=== PATIENT | female | born 1970 | race Caucasian/White ===

== ENCOUNTER → 2021-02-22 | Outpatient (CLI) | payer BC ==
[2021-02-22 13:49] VITALS: BP 158/98; PULSE 84; RESP 18; TEMP 98.4
--- NOTE | 2021-02-22 14:46 | P.GSHP ---
History of Present Illness H&P Date: 02/22/21 Chief Complaint: left breast invasive ductal cancer Jane is a 50-year-old white female status post routine mammogram on [id number]. This revealed an area of pleomorphic calcifications in the left breast in the lower outer quadrant at 5:00 for which stereotactic core biopsy was recommended. No lesions of concern were identified in the right breast. She underwent a stereotactic core biopsy of the left breast and which revealed invasive ductal carcinoma ER/VA and HER-2 status are pending. The patient had not felt any lumps masses or not his of concern in either breast prior to the mammogram. She is not complaining of any abnormal nipple discharge. She gets regular mammograms every year. She has not had any recent trauma or infection in the breast. Caffeine: 3 cups/day nicotine: none chocolate: several times/week hormones: none BCP: 10 years, stopped 27 years ago Family history: Mother: Breast cancer mid 60s Paternal grandmother: Breast cancer Paternal aunt: Breast cancer Hormonal history: menarche: 9 , breast fed: none; first at 24 menopause: partial hysterectomy at 39 left ovaries; done for cyst no cancer BCP: 10 years stopped 27 years ago Surgical history: partial hysterectomy; left ovaries; bladder suspension foot surgery tubal Medical history: Negative Social history: Alcohol: Negative Nicotine: Negative Drugs: Negative - Constitutional Constitutional: Denies chills, Denies fever - EENT Eyes: denies blurred vision, denies pain Ears, nose, mouth and throat: Denies headache, Denies sore throat - Breasts Breasts: bilateral: as per HPI - Cardiovascular Cardiovascular: Denies chest pain, Denies shortness of breath - Respiratory Respiratory: Denies cough, Denies 7 - Gastrointestinal Gastrointestinal: Denies abdominal pain, Denies diarrhea, Denies nausea, Denies vomiting - Genitourinary (Female) Genitourinary: Denies dysuria, Denies hematuria - Menstruation Menstruation: Reports post hysterectomy - Musculoskeletal Musculoskeletal: Reports myalgias - Integumentary Integumentary: Denies pruritus, Denies rash - Neurological Neurological: Denies numbness, Denies weakness - Psychiatric Psychiatric: Denies anxiety, Denies depression - Endocrine Endocrine: Reports weight change, Denies fatigue - Hematologic/Lymphatic Comment: none - Allergic/Immunologic Allergic/Immunologic: Reports as per HPI Past Medical History Past Medical History: No Reported History History of Any Multi-Drug Resistant Organisms: None Reported Past Surgical History: Bladder Surgery, Hysterectomy, Tubal Ligation Additional Past Surgical History / Comment(s): left breast biopsy 2020, right foot surgery x2 Past Anesthesia/Blood Transfusion Reactions: No Reported Reaction Past Psychological History: No Psychological Hx Reported Smoking Status: Former smoker Past Alcohol Use History: None Reported Past Drug Use History: None Reported - Past Family History Mother Family Medical History: Cancer Additional Family Medical History / Comment(s): breast cancer, also in paternal mom and aunt Medications and Allergies Home Medications Medication Instructions Recorded Confirmed Type No Known Home Medications 02/22/21 02/22/21 History Allergies Allergy/AdvReac Type Severity Reaction Status Date / Time levofloxacin [From Levaquin] Allergy Rash/Hives Verified 02/22/21 13:49 Surgical - Exam Vital Signs Temp Pulse Resp BP Pulse Ox 98.4 F 84 18 158/98 96 02/22/21 13:37 02/22/21 13:37 02/22/21 13:37 02/22/21 13:37 02/22/21 13:37 BMI 38.3 - General no distress - Eyes normal ocular movement - ENT no hearing loss, no congestion - Neck trachea midline - Respiratory normal respiratory effort, clear to auscultation - Cardiovascular Rhythm: regular Heart Sounds: normal: S1, S2 - Abdomen Abdomen: soft - Integumentary normal turgor - Musculoskeletal normal gait - Psychiatric oriented to time, oriented to person, oriented to place, speech is normal, memory intact Breast Exam: BRA: 42B inspection grade 2 ptosis bilateral palpation: right breast: Positional exam fibrocystic changes no dominant masses or nodules of concern Right axilla: No adenopathy of concern Left breast: Multi-positional exam fibrocystic changes, particularly attention to the 5 o'clock position reveals what is most likely the biopsy site but no discrete dominant masses or nodules of concern Left axilla: No adenopathy of concern Results Mammogram report reviewed films are not available at this time Pathology report reviewed ER/VA and HER-2 status are not available at this time Assessment and Plan Assessment: Impression: 1. Invasive ductal left breast carcinoma 5 o'clock position awaiting radiographic studies as well as ER/VA and HER-2/izzy studies 2. Family history of cancer 3. Fibrocystic breast changes Plan: 1. Presentation of case at tumor board 2. Obtain radiographic and pathologic studies 3. schedule operative procedure for the first part of March 4. Patient is going to follow up here after cases been presented at tumor board 5. genetic testing CC: Dr. Elizabeth
== END ==
LOC: WWCWWP 13:22
PROVIDERS: ATTEND Surgery
DX: C50.512 Malignant neoplasm of lower-outer quadrant of left female breast (principal); N60.11 Diffuse cystic mastopathy of right breast; N60.12 Diffuse cystic mastopathy of left breast; Z80.3 Family history of malignant neoplasm of breast; Z87.891 Personal history of nicotine dependence; Z88.1 Allergy status to other antibiotic agents

== ENCOUNTER → 2021-03-09 | Outpatient (CLI) | payer BC ==
[2021-03-09 08:46] VITALS: BP 160/81; PULSE 65; RESP 18; TEMP 98.4
--- NOTE | 2021-03-09 09:34 | P.PN ---
Progress Note - Text Progress Note Date: 03/09/21 Jane Martinez is a 51-year-old white female whose case was presented at tumor board on [id number]. She was noted to have a T1or2 [id number]- stage IA or 1B invasive ductal carcinoma. The pathology revealed invasive as well as in situ carcinoma. Secondary to the question of the size of the tumor it was recommended that an MRI be performed. If it appears that the invasive component is greater than 2 cm neoadjuvant chemotherapy is recommended. If the lesion is less than 2 cm then surgery would be performed initially. The patient has been recommended to undergo an MRI as well as genetic testing. She presents today for discussion of her treatment plan. The patient was recommended and discussed with her that she should undergo an MRI of the breast as well as genetic testing. Both of these have been scheduled. Additionally have recommended that she be seen by medical oncology and this is being scheduled. The surgical options for the patient were also discussed. Options for the breast include mastectomy plus or minus reconstruction versus lumpectomy with radiation. The risks include but are not limited to bleeding, infection, reaction to the anesthetic. Additionally the possibility of a positive margin requiring reexcision was discussed. I've also discussed with the patient treatment of the axilla. This would include a sentinel node biopsy with possible injection of methylene blue and radioactive tracer did not travel to the lymph node. Additionally the p ossibility of an axillary node dissection. This can benefits of these procedures were discussed with the patient. Risks include but are not limited to bleeding, infection, reaction to the anesthetic, lymphedema, decreased sensation to the inner arm, and possible injury to the thoracodorsal and long thoracic nerves. I spent approximately 45 minutes with the patient discussing her tumor and the t reatment options. The patient will make her final decision after results of the MRI and genetic testing are available. 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 Chu Elizabeth
== END ==
LOC: WWCWWP 08:34
PROVIDERS: ATTEND Surgery
DX: D05.12 Intraductal carcinoma in situ of left breast (principal); Z88.1 Allergy status to other antibiotic agents

== ENCOUNTER → 2021-04-12 | Outpatient (CLI) | payer BC ==
--- NOTE | 2021-04-13 10:42 | ECHOF ---
Referral Reason:Z01.818 encounter for pre procedural exam MEASUREMENTS -------- HEIGHT: 165.1 cm WEIGHT: 104.3 kg BP: RVIDd: 3.4 cm (< 3.3) IVSd: 1.6 cm (0.6 - 1.1) LVIDd: 4.1 cm (3.9 - 5.3) LVPWd: 1.4 cm (0.6 - 1.1) IVSs: 1.9 cm LVIDs: 2.7 cm LVPWs: 1.7 cm LAESV Index (A-L): 23.38 ml/m Ao Diam: 3.0 cm (2.0 - 3.7) AV Cusp: 2.2 cm (1.5 - 2.6) LA Diam: 4.4 cm (2.7 - 3.8) MV EXCURSION: 16.312 mm (> 18.000) MV EF SLOPE: 64 mm/s (70 - 150) EPSS: 0.4 cm MV E Finesse: 0.54 m/s MV DecT: 220 ms MV A Finesse: 0.59 m/s MV E/A Ratio: 0.92 RAP: 5.00 mmHg RVSP: 29.39 mmHg FINDINGS -------- Sinus rhythm. This was a technically difficult study with suboptimal apical views. The left ventricular size is normal. There is moderate concentric left ventricular hypertrophy. O verall left ventricular systolic function is normal with, an EF between 55 - 60 %. The diastolic fi lling pattern is normal for the age of the patient {E/E'}. The right ventricle is mildly enlarged. Normal LA size by volume 22+/-6 ml/m2. The right atrial size is normal. 3.0mg of Lumason was utilized for enhancement of images Interatrial and interventricular septum intact. The aortic valve is trileaflet and appears structurally normal. There is no evidence of aortic regu rgitation. There is no evidence of aortic stenosis. No mitral regurgitation. Mild tricuspid regurgitation present. There is no evidence of pulmonary hypertension. The right v entricular systolic pressure, as measured by Doppler, is 29.39mmHg. There is no pulmonic regurgitation present. The aortic root size is normal. IVC Not well visulized. There is no pericardial effusion. CONCLUSIONS -------- 1. The left ventricular size is normal. 2. There is moderate concentric left ventricular hypertrophy. 3. Overall left ventricular systolic function is normal with, an EF between 55 - 60 %. 4. The right ventricle is mildly enlarged. 5. Mild tricuspid regurgitation present. MANUAL TRAINING TEACHER: Rozina Wade RDCS
== END | disposition home or self-care (01) ==
LOC: RADECHMAIN 13:54
PROVIDERS: ATTEND Internal Medicine Hematology & Oncology
DX: Z01.818 Encounter for other preprocedural examination (principal); I07.1 Rheumatic tricuspid insufficiency
CPT/HCPCS: 93306

== ENCOUNTER → 2021-04-23 | Outpatient (CLI) | payer BC | END | disposition home or self-care (01) | LOC: LABPAT 07:11 | PROVIDERS: ATTEND Surgery Plastic and Reconstructive Surgery | DX: Z01.812 Encounter for preprocedural laboratory examination (principal); Z20.822 Contact with and (suspected) exposure to COVID-19 | CPT/HCPCS: U0003; C9803 ==

== ENCOUNTER → 2021-04-26 | Day surgery (SDC) | payer BC ==
[2021-04-23 11:27] VITALS: BMI 38.2
[~2021-04-26] MED LIST: ACETAMINOPHEN TAB 500 MG TAB PO PRN; BUPIVACAIN-EPI 0.25%-1:200,000 30 ML VIAL SQ ONE; HEPARIN SODIUM,PORCINE 10,000 UNIT/ML 1 ML VIAL IV ONE; HEPARIN SODIUM,PORCINE 100 UNIT/ML 5 ML VIAL IV ONE; LACTATED RINGERS 1,000 ML IV ONE; LACTATED RINGERS 1,000 ML IV SCH; LIDOCAINE 1% INJ 10MG/ML (20 ML MDV) ONE; MIDAZOLAM 2 MG/2 ML VIAL ONE; ONDANSETRON 4 MG/2 ML VIAL IVP ONE; PROPOFOL 10 MG/ML 20 ML VIAL IV ONE; Pre Op ABX Message 1 EACH MISC MISCELLANE ONE; SODIUM CHLORIDE 0.9% 500 ML 500 ML with HEPARIN SODIUM,PORCINE 5,000 UNIT IV ONE; fentaNYL (PF) 50 MCG/ML 2 ML AMP IV PRN; fentaNYL (PF) 50 MCG/ML 2 ML AMP ONE
--- NOTE | 2021-04-26 06:20 | P.GSHP ---
History of Present Illness H&P Date: 04/26/21 CHIEF COMPLAINT: Breast cancer HISTORY OF PRESENT ILLNESS: The patient is a 51-year-old female diagnosed with breast cancer. She needs a Mediport placement for chemotherapy. PAST MEDICAL HISTORY: See list and reviewed PAST SURGICAL HISTORY: See list and reviewed CURRENT MEDICATIONS: See list and reviewed ALLERGIES: See list and reviewed SOCIAL HISTORY: See list and reviewed FAMILY HISTORY: See list and reviewed REVIEW OF ORGAN SYSTEMS: CONSTITUTIONAL: Has weight loss. PHYSICAL EXAMINATION: Vital signs: Stable GENERAL: Well developed and in no acute distress. Pleasant. HEENT: No sclera icterus. Extraocular movements grossly intact. Moist buccal mucosa. Head is atraumatic, normocephalic. Hears conversational speech. No nasal drainage. NECK: Supple without lymphadenopathy. No JV distention. CHEST: Non-labored respirations and equal bilateral excursions. CARDIOVASCULAR: Regular rate and rhythm. Palpable 2+ radial pulses. ABDOMEN: Nontender. MUSCULOSKELETAL: No clubbing, cyanosis or edema. NEUROLOGIC: No focal or lateralizing signs. PSYCH: Appropriate affect. Alert and oriented to person, place and time. ASSESSMENT: 1. Breast cancer 2. Need for chemotherapeutic access. PLAN: 1. Agree with Port-A-Cath placement. Past Medical History Past Medical History: Cancer Additional Past Medical History / Comment(s): newly diagnosed left breast cancer History of Any Multi-Drug Resistant Organisms: None Reported Past Surgical History: Bladder Surgery, Breast Surgery, Hysterectomy, Orthopedic Surgery, Tubal Ligation Additional Past Surgical History / Comment(s): left breast biopsy, right foot surgery x2 Past Anesthesia/Blood Transfusion Reactions: No Reported Reaction Past Psychological History: No Psychological Hx Reported Smoking Status: Former smoker Past Alcohol Use History: None Reported Past Drug Use History: None Reported - Past Family History Mother Family Medical History: Cancer Additional Family Medical History / Comment(s): breast cancer, also in paternal grandma and aunt Medications and Allergies Home Medications Medication Instructions Recorded Confirmed Type No Known Home Medications 02/22/21 04/23/21 History Allergies Allergy/AdvReac Type Severity Reaction Status Date / Time levofloxacin [From Levaquin] Allergy Rash/Hives Verified 04/23/21 11:18
[2021-04-26 09:05] LABS: INR 0.9 (<1.2); Partial Thromboplastin Time 23.3 sec (22.0-30.0); Prothrombin Time 10.3 sec (9.0-12.0)
[2021-04-26 09:10] LABS: Glucose,Whole Blood 114 mg/dL (75-99)
--- NOTE | 2021-04-26 11:04 | P.OP ---
Date of Procedure: 04/26/21 Description of Procedure: SURGEON: CATHY BILLINGSLEY MD CLINICAL MEDICAL TRANSCRIPTIONIST: None. PREOPERATIVE DIAGNOSES: 1. Breast cancer, right 2. Need for chemotherapeutic access. 3. Morbid obesity due to excess calories, BMI 39.2 POSTOPERATIVE DIAGNOSES: 1. Breast cancer, right 2. Need for chemotherapeutic access. 3. Morbid obesity due to excess calories, BMI 39.2 PROCEDURES PERFORMED: 1. Ultrasound guided central venous access of the right internal jugular venous vein. 2. Fluoroscopic guidance for central venous access right internal jugular vein, 1 second. 3. Placement of right internal jugular power port 6 [place] by [employer] System, Xcela Plus Port ANESTHESIA: IV sedation with local. ESTIMATED BLOOD LOSS: 5 mL. SPECIMENS REMOVED: None. COMPLICATIONS: None. FINDINGS: 1. No thrombus encountered along the right carotid artery or internal jugular vein. 2. Access of the right internal jugular vein under ultrasound guidance. 3. Fluoroscopy 1 second. INDICATIONS: The patient is a 51-year-old female recently diagnosed with breast cancer. She presents for chemotherapeutic access. Benefits and risks of surgical intervention were described including bleeding, infection, mechanical problems with his port. Informed consent was obtained. DESCRIPTION OR PROCEDURE: Patient was brought into the operating room, laid in supine position. After adequate IV sedation, the chest and right neck were prepped and draped in a standard sterile fashion including the shoulder with ChloraPrep. Timeout protocol was confirmed with the surgical team regarding the patient's name, procedure to be performed including preoperative medications for which she received IV antibiotics. Bilateral SCDs were placed. An ultrasound was used to capture views of the right internal jugular vein including right carotid artery, which was patent and without thrombus along its course. The right IJ was then localized using anesthetic for the skin. A 16 [place] needle was used to access the IJ. A guidewire was advanced into the IJ with dark nonpulsatile venous blood. Two fingerbreadths distal to the clavicle, on the lateral third, a transverse 1.5 to 2 cm incision was deepened into the skin after localizing the skin. A pocket was created for the port. The port on the back table was flushed with heparinized saline and then attached to the catheter tubing. An adapter was fastened to the actual port site over the tubing. The port easily had fit snug into the pocket. A subcutaneous tunneler was placed along the open end of the tubing and brought out through the separate stab incision. Fluoroscopic guidance confirmed no kinking along the tubing and the port site. Next, the J-wire was exchanged for a catheter sheath for which the tubing was cut to 25 cm and then advanced through the catheter sheath. The Peel-away sheath was then removed and the tubing was secured at the junction of the superior vena cava as well as the right atrium. The tubing was found to be crossed however functional. This was done under fluoroscopic guidance 1 second. Easy pullback as well as return and aspiration was obtained of the port site. The skin incision was closed using layers using 3-0 Vicryl for the subcu followed by 4-0 Monocryl in a running subcuticular fashion. At the stick site this was also reapproximated using 4-0 Monocryl. The incisions were covered with Optifoam, The skin was cleansed and Exofin liquid glue was applied. Optifoam dressing was placed over the port site. A total of 20 mL of local anesthetic was placed. At the end of the procedure, needle, sponge, and instrument count was verified correct by rn surgical pcu. Heparin lock of 5 mL was placed. The patient was awoken and pain free and taken to the second stage postanesthesia care unit. The patient tolerated the procedure well. Plan - Discharge Summary Discharge Rx Participant: Yes New Discharge Prescriptions: New Acetaminophen Tab [Tylenol Tab] 1,000 mg PO Q6HR PRN #30 tablet PRN Reason: Pain Continue OLANZapine [ZyPREXA] 2.5 mg PO DAILY Pegfilgrastim [Neulasta] DIRECTED dexAMETHasone 4 mg PO BID Discharge Medication List Acetaminophen Tab [Tylenol Tab] 1,000 mg PO Q6HR PRN #30 tablet 04/26/21 [Rx] OLANZapine [ZyPREXA] 2.5 mg PO DAILY 04/26/21 [History] Pegfilgrastim [Neulasta] DIRECTED 04/26/21 [History] dexAMETHasone 4 mg PO BID 04/26/21 [History] Follow up Appointment(s)/Referral(s): Cathy Billingsley MD [STAFF PHYSICIAN] - As Needed Patient Instructions/Handouts: Implanted Venous Access Port (GEN), How to Care for Your Implanted Venous Access Port (DC), *Surgery [facility] - Managing Your Pain After Surgery Without Opioids Activity/Diet/Wound Care/Special Instructions: Remove dressing on Apr 30. May shower. No bathtub soaks for 2 weeks, May 10 No wide motions of the right arm to prevent dislodge of your port for 3 weeks. EXPECT BRUISING AND SLEEP WITH 2 TO 3 PILLOWS. BRUISING RESOLVES IN 2 TO 3 WEEKS. Take Tylenol, Aleve or ibuprofen for pain as needed Discharge Disposition: HOME SELF-CARE
[2021-04-26 11:06] VITALS: RESP 16; TEMP 97.4
[2021-04-26 12:03] VITALS: PULSE 54
--- NOTE | 2021-04-26 12:06 | FL ---
Fluoroscopy HISTORY: Port-A-Cath placement 1 seconds fluoroscopy time supplied to the referring clinician. 1 intraoperative C-arm images docume nt the procedure. See dictated report from general surgery.
--- NOTE | 2021-04-26 12:15 | XR ---
EXAMINATION TYPE: XR chest 1V DATE OF EXAM: 04/26/2021 COMPARISON: NONE HISTORY: Central line placement TECHNIQUE: Single frontal view of the chest is obtained. FINDINGS: Port-A-Cath is present over the right pectoral region, right jugular approach is noted with a catheter tip at the level of the superior vena cava. There is retrocardiac bandlike probable subse gmental atelectatic change, no pleural effusion or pneumothorax seen. The cardiac silhouette size is within normal limits. The osseous structures are intact. IMPRESSION: No evident complication status post Port-A-Cath placement.
[2021-04-26 12:19] VITALS: BP 138/78
== END | disposition home or self-care (01) ==
LOC: OR 07:52
PROVIDERS: ATTEND Surgery Plastic and Reconstructive Surgery
DX: C50.911 Malignant neoplasm of unspecified site of right female breast (principal); E66.01 Morbid (severe) obesity due to excess calories; Z68.39 Body mass index [BMI] 39.0-39.9, adult
CPT/HCPCS: 36556; 85610; 85730; 77001; 71045; C1788; J2250; J1644; J1642; J0690; J2405; J2001; J3010; J2704

== ENCOUNTER → 2021-05-22 | Outpatient (CLI) | payer BC ==
--- NOTE | 2021-05-22 08:00 | US ---
EXAMINATION TYPE: US liver DATE OF EXAM: 05/22/2021 COMPARISON: NONE CLINICAL HISTORY: R94.5. Abnormal LFT's, history of breast CA EXAM MEASUREMENTS: Liver Length: 18.8 cm Gallbladder Wall: 0.2 cm CBD: 0.5 cm Right Kidney: 11.4 x 3.5 x 4.0 cm Pancreas: wnl, tail obscured by overlying bowel gas Liver: Heterogeneous liver with multiple (up to 4) hyperechoic lesions, largest right superior lobe near IVC= 4.4 x 3.0 x 3.2 cm Gallbladder: Possible polyp posterior wall Evidence for sonographic Boyd's sign: No CBD: wnl Right Kidney: wnl Visualized portion of pancreas unremarkable. Portions of distal body and tail obscured by overlying b owel gas. Heterogeneous liver which limits evaluation for focal masses. Hyperechoic lesions marked by technologist measure up to 4.4 cm long axis. Follow-up advised. Gallbladder shows no mobile shadowin g gallstones. Incidental tiny polyp. No biliary dilatation. No right-sided hydronephrosis. IMPRESSION: No biliary dilatation. Abnormal hyperechoic lesions on background heterogeneous tissue. A dvise further investigation with contrast-enhanced liver protocol CT or MRI to better evaluate possib le solid masses.
== END | disposition home or self-care (01) ==
LOC: RADUSWWP 07:07
PROVIDERS: ATTEND Internal Medicine Hematology & Oncology
DX: R94.5 Abnormal results of liver function studies (principal); Z85.3 Personal history of malignant neoplasm of breast
CPT/HCPCS: 76705

== ENCOUNTER → 2021-05-24 | Outpatient (CLI) | payer BC ==
--- NOTE | 2021-05-24 10:14 | MR ---
MR liver with and without contrast HISTORY: Abnormal ultrasound liver, breast carcinoma Multiplanar multisequence and postcontrast images obtained through the liver. Patient received 10.5 c c Gadavist IV intravenously. Correlation to ultrasound liver 05/22/2021 The echogenic foci in the liver correspond to multiple masses seen within the liver which show T1 int ermediate, T2 bright signal, following contrast administration there is progressive centripetal nodul ar enhancement of multiple varying sized lesions consistent with hemangiomas. No enhancing mass suspi cious for metastatic disease within the liver. Lung bases show no effusion. Adrenal glands show no mass. There is no retroperitoneal adenopathy. Rig ht kidney shows a cortical cyst medially and anteriorly. No hydronephrosis bilaterally. Pancreas is n ormal. Gallbladder is unremarkable. Spleen is within normal limits. There is no ascites. Aorta shows normal caliber. No bowel obstruction. IMPRESSION: Hemangiomas within the liver. No evident metastasis.
== END | disposition home or self-care (01) ==
LOC: RADMRIMAIN 08:01
PROVIDERS: ATTEND Internal Medicine Hematology & Oncology
DX: C50.519 Malignant neoplasm of lower-outer quadrant of unspecified female breast (principal); D18.09 Hemangioma of other sites
CPT/HCPCS: 74183; A9585

== ENCOUNTER → 2021-07-02 | Outpatient (CLI) | payer BC ==
--- NOTE | 2021-07-10 16:47 | ECHOF ---
Referral Reason:Z01.818 Chemo MEASUREMENTS -------- HEIGHT: 165.1 cm WEIGHT: 106.6 kg BP: RVIDd: 2.9 cm (< 3.3) IVSd: 1.6 cm (0.6 - 1.1) LVIDd: 3.9 cm (3.9 - 5.3) LVPWd: 1.7 cm (0.6 - 1.1) IVSs: 2.2 cm LVIDs: 2.4 cm LVPWs: 2.1 cm LAESV Index (A-L): 28.39 ml/m Ao Diam: 2.7 cm (2.0 - 3.7) AV Cusp: 2.1 cm (1.5 - 2.6) LA Diam: 4.5 cm (2.7 - 3.8) MV E Finesse: 0.69 m/s MV DecT: 217 ms MV A Finesse: 0.94 m/s MV E/A Ratio: 0.73 RAP: 5.00 mmHg RVSP: 34.21 mmHg FINDINGS -------- Sinus rhythm. This was a technically adequate study. The left ventricular size is normal. There is moderate concentric left ventricular hypertrophy. O verall left ventricular systolic function is normal with, an EF between 55 - 60 %. The diastolic fi lling pattern is normal for the age of the patient 11.37. The right ventricle is normal in size. Normal LA size by volume 22+/-6 ml/m2. The right atrial size is normal. Interatrial and interventricular septum intact. The aortic valve is trileaflet and appears structurally normal. There is no evidence of aortic regu rgitation. There is no evidence of aortic stenosis. No mitral regurgitation. Mild tricuspid regurgitation present. There is no evidence of pulmonary hypertension. The right v entricular systolic pressure, as measured by Doppler, is 34.21mmHg. Trace/mild (physiologic) pulmonic regurgitation. The aortic root size is normal. Normal inferior vena cava with normal inspiratory collapse consistent with estimated right atrial pre ssure of 5 mmHg. There is no pericardial effusion. CONCLUSIONS -------- 1. The left ventricular size is normal. 2. There is moderate concentric left ventricular hypertrophy. 3. Overall left ventricular systolic function is normal with, an EF between 55 - 60 %. 4. The diastolic filling pattern is normal for the age of the patient 11.37 5. Mild tricuspid regurgitation present. 6. Trace/mild (physiologic) pulmonic regurgitation. STUDIO OPERATIONS ENGINEER IN CHARGE: Dulce Bonilla RDCS
== END | disposition home or self-care (01) ==
LOC: RADECHMAIN 08:20
PROVIDERS: ATTEND Internal Medicine Hematology & Oncology
DX: Z01.818 Encounter for other preprocedural examination (principal); I07.1 Rheumatic tricuspid insufficiency; I37.1 Nonrheumatic pulmonary valve insufficiency
CPT/HCPCS: 93306

== ENCOUNTER → 2021-09-06 | Outpatient (CLI) | payer BC ==
[2021-09-06 10:29] VITALS: BP 164/82; PULSE 97; RESP 17; TEMP 98.5
--- NOTE | 2021-09-06 11:08 | P.PN ---
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 This revealed an area of pleomorphic calcifications in the left breast in the lower outer quadrant at 5:00 for which stereotactic core biopsy was recommended. No lesions of concern were identified in the right breast. She underwent a stereotactic core biopsy of the left breast on which revealed invasive ductal carcinoma ER+, Pr+, Her2+. The patient had not felt any lumps masses or not his of concern in either breast prior to the mammogram. She was not complaining of any abnormal nipple discharge. She gets regular mammograms every year. She has not had any recent trauma or infection in the breast. 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 She had a breast MRI which showed the lesion in the left breast to be about 3 cm, and she therefore had neoadjuvant chemotherapy. She completed 6 cycles of TCHP she had a follow-up breast MRI which revealed a complete imaging response. She completed her chemotherapy approximately 4 weeks ago. Note from Dr. Cam reviewed, 08-28-21. At this time the patient would like both breasts to be removed without reconstruction. Caffeine: 3 cups/day nicotine: none chocolate: several times/week hormones: none BCP: 10 years, stopped 27 years ago Family history: Mother: Breast cancer mid 60s Paternal grandmother: Breast cancer Paternal aunt: Breast cancer Hormonal history: menarche: 9 , breast fed: none; first at 24 menopause: partial hysterectomy at 39 left ovaries; done for cyst no cancer BCP: 10 years stopped 27 years ago Surgical history: partial hysterectomy; left ovaries; bladder suspension foot surgery tubal Medical history: Negative Social history: Alcohol: Negative Nicotine: Negative Drugs: Negative - Constitutional Constitutional: Denies chills, Denies fever - EENT Eyes: denies blurred vision, denies pain Ears, nose, mouth and throat: Denies headache, Denies sore throat - Breasts Breasts: bilateral: as per HPI - Cardiovascular Cardiovascular: Denies chest pain, Denies shortness of breath - Respiratory Respiratory: Denies cough - Gastrointestinal Gastrointestinal: Denies abdominal pain, Denies diarrhea, Denies nausea, Denies vomiting - Genitourinary (Female) Genitourinary: Denies dysuria, Denies hematuria - Menstruation Menstruation: Reports post hysterectomy - Musculoskeletal Musculoskeletal: Reports myalgias - Integumentary Integumentary: Denies pruritus, Denies rash - Neurological Neurological: Denies numbness, Denies weakness - Psychiatric Psychiatric: Denies anxiety, Denies depression - Endocrine Endocrine: Reports weight change, Denies fatigue - Hematologic/Lymphatic Comment: none - Allergic/Immunologic Allergic/Immunologic: Reports as per HPI Past Medical History Past Medical History: No Reported History History of Any Multi-Drug Resistant Organisms: None Reported Past Surgical History: Bladder Surgery, Hysterectomy, Tubal Ligation Additional Past Surgical History / Comment(s): left breast biopsy 2020, right foot surgery x2 Past Anesthesia/Blood Transfusion Reactions: No Reported Reaction Past Psychological History: No Psychological Hx Reported Smoking Status: Former smoker Past Alcohol Use History: None Reported Past Drug Use History: None Reported Objective - Vital Signs Vital signs: Vital Signs Temp 98.5 F 09/06/21 10:25 Pulse 97 09/06/21 10:25 Resp 17 09/06/21 10:25 BP 164/82 09/06/21 10:25 Pulse Ox 98 09/06/21 10:25 FiO2 Intake & Output 09/05/21 09/06/21 09/06/21 18:59 06:59 18:59 Weight 104.326 kg - Exam BMI: 38.3 - Constitutional General appearance: Present: cooperative - EENT Eyes: Present: EOMI ENT: Present: hearing grossly normal - Neck Neck: Present: normal ROM - Respiratory Respiratory: bilateral: CTA - Cardiovascular Rhythm: regular Heart sounds: normal: S1, S2 - Gastrointestinal General gastrointestinal: Present: soft - Integumentary Integumentary: Present: normal turgor - Musculoskeletal Musculoskeletal: Present: gait normal - Psychiatric Psychiatric: Present: A&O x's 3, appropriate affect, intact judgment & insight - Additional findings Additional findings: Breast Exam: BRA: 42B inspection: Bilateral grade 3 ptosis Palpation: Right breast: Multi-positional exam fibrocystic changes no dominant masses or nodules of concern Right axilla: No adenopathy of concern Left breast: Multi-positional exam fibrocystic changes no dominant masses or nodules of concern Left axilla: No adenopathy of concern Port-A-Cath is in the right chest wall Assessment and Plan Assessment: Impression: stage IA invasive ductal left breast cancer CHECK mutation Plan: A lateral mastectomy, left sentinel node injection, left sentinel node biopsy, possible left axillary node dissection Risks and benefits of the surgery I discussed with the patient. As well as surgical options. At this time the patient wants bilateral mastectomy and is not interested in the lumpectomy. She additionally is not interested in reconstruction and does not want skin sparing for reconstruction down the road. She understands the risks which include bleeding, infection, reaction to the anesthetic. She also started understands the risk of a sentinel node biopsy possible axillary node dissection. She did have some numbness to the inner arm, swelling of the arm, injury to the thoracodorsal or long thoracic nerves with possibility of waiting scapula. She understands and wishes to proceed. Cc: Dr. Elizabeth
== END ==
LOC: WWCWWP 10:11
PROVIDERS: ATTEND Surgery
DX: C50.912 Malignant neoplasm of unspecified site of left female breast (principal); Z17.0 Estrogen receptor positive status [ER+]; Z87.891 Personal history of nicotine dependence; Z88.1 Allergy status to other antibiotic agents

== ENCOUNTER → 2021-09-28 | Outpatient (CLI) | payer BC ==
--- NOTE | 2021-09-28 12:36 | CA ---
Transthoracic Echo Report Name: Jane Martinez Age: 51 Gender: F : 1970 Exam Date: 09/28/2021 10:45 Exam Location: [facility] Ht (in): 65 Wt (lb): 226 Ordering Physician: Jacek Cam MD Attending/Referring Phys: Corduroy Cutter Operator Анна Shanks RDCS Procedure CPT: Indications: Z01.818 CHEMO OR PROCEDURE Cardiac Hx: Technical Quality: Good Contrast 1: Total Dose (mL): Contrast 2: Total Dose (mL): MEASUREMENTS (Male / Female) Normal Values 2D ECHO LV Diastolic Diameter PLAX 3.9 cm 4.2 - 5.9 / 3.9 - 5.3 cm LV Systolic Diameter PLAX 2.2 cm IVS Diastolic Thickness 1.6 cm 0.6 - 1.0 / 0.6 - 0.9 cm LVPW Diastolic Thickness 1.6 cm 0.6 - 1.0 / 0.6 - 0.9 cm LV Relative Wall Thickness 0.8 RV Internal Dim ED PLAX 2.7 cm LA Volume 56.1 cm??? 18 - 58 / 22 - 52 cm??? M-MODE Aortic Root Diameter MM 3.2 cm LA Systolic Diameter MM 3.4 cm LA Ao Ratio MM 1.1 MV E Point Septal Separation 0.5 cm AV Cusp Separation MM 2.2 cm DOPPLER AV Peak Velocity 131.8 cm/s AV Peak Gradient 7.0 mmHg MV Area PHT 2.4 cm??? MR Peak Velocity 121.5 cm/s MR Peak Gradient 5.9 mmHg Mitral E Point Velocity 76.0 cm/s Mitral A Point Velocity 99.2 cm/s Mitral E to A Ratio 0.8 MV Deceleration Time 310.5 ms MV E' Velocity 6.0 cm/s Mitral E to MV E' Ratio 12.7 TR Peak Velocity 260.4 cm/s TR Peak Gradient 27.1 mmHg Right Ventricular Systolic Press 32.1 mmHg FINDINGS Left Ventricle Left ventricular ejection fraction is estimated at 55-60 %. Left ventricular cavity size normal. Grade 1 diastolic dysfunction. Severely increased septal wall thickness. Severely increased posterior wall thickness. Right Ventricle The right ventricle is normal in size and function. Right Atrium The right atrium is normal in size. Left Atrium Mildly increased left atrial volume. Mitral Valve Structurally normal mitral valve without significant stenosis or prolapse. There is trace mitral regurgitation. Aortic Valve Structurally normal aortic valve without significant sclerosis or stenosis. There is no aortic regurgitation. Tricuspid Valve Structurally normal tricuspid valve without significant stenosis. Pulmonary artery systolic pressure is normal. Trace tricuspid regurgitation. Pulmonic Valve Structurally normal pulmonic valve without significant stenosis. There is no pulmonic regurgitation. Pericardium Normal pericardium without effusion. Aorta Normal aortic root dimension. CONCLUSIONS Technically difficult study for interpretation Normal left ventricular dimension and systolic function Previewed by: Dr. Keaton Su MD (Electronically Signed) Final Date: 28 September 2021 12:35
== END | disposition home or self-care (01) ==
LOC: RADECHMAIN 10:40
PROVIDERS: ATTEND Internal Medicine Hematology & Oncology
DX: Z01.818 Encounter for other preprocedural examination (principal); I08.1 Rheumatic disorders of both mitral and tricuspid valves
CPT/HCPCS: 93306

== ENCOUNTER 2021-10-02 10:52 | Day surgery (SDC) | payer BC ==
[2021-09-27 12:57] VITALS: BMI 37.5
[~2021-10-02 10:52] MED LIST changes: -ACETAMINOPHEN TAB 500 MG TAB PO PRN; -BUPIVACAIN-EPI 0.25%-1:200,000 30 ML VIAL SQ ONE; +DEXAMETHASONE SOD PHOSPHATE 4 MG/ML 1 ML VIAL IV ONE; -HEPARIN SODIUM,PORCINE 10,000 UNIT/ML 1 ML VIAL IV ONE; -HEPARIN SODIUM,PORCINE 100 UNIT/ML 5 ML VIAL IV ONE; +HEPARIN SODIUM,PORCINE/PF 5,000 UNIT/0.5 ML SYRINGE SQ PRN; +HYDROmorphone 0.5 MG/0.5 ML SYRINGE IVP PRN; -LACTATED RINGERS 1,000 ML IV ONE; +LIDOCAINE 1% (10MG/ML) FOR IV START INTRADERMA PRN; -LIDOCAINE 1% INJ 10MG/ML (20 ML MDV) ONE; +METOCLOPRAMIDE 5 MG/ML 2 ML VIAL IVP PRN; -MIDAZOLAM 2 MG/2 ML VIAL ONE; -PROPOFOL 10 MG/ML 20 ML VIAL IV ONE; +SCOPOLAMINE 1 MG/72 HR PATCH TRANSDERM ONE; -SODIUM CHLORIDE 0.9% 500 ML 500 ML with HEPARIN SODIUM,PORCINE 5,000 UNIT IV ONE; -fentaNYL (PF) 50 MCG/ML 2 ML AMP IV PRN; -fentaNYL (PF) 50 MCG/ML 2 ML AMP ONE
[2021-10-02 11:50] LABS: Glucose,Whole Blood 108 mg/dL (70-110)
[2021-10-02] MEDS ORDERED: SUCCINYLCHOLINE CHLORIDE VIAL 200 MG/10 ML VIAL IV ONE (12:04)
[2021-10-02] MEDS ORDERED: PROPOFOL 10 MG/ML 20 ML VIAL IV ONE (12:04)
[2021-10-02] MEDS ORDERED: fentaNYL (PF) 50 MCG/ML 2 ML AMP ONE (12:04)
[2021-10-02] MEDS ORDERED: ROCURONIUM 10 MG/ML (5 ML VIAL) IV ONE (12:04)
[2021-10-02] MEDS ORDERED: LIDOCAINE 2% INJ 20 MG/ML (2 ML VIAL) ONE (12:04)
[2021-10-02] MEDS ORDERED: MIDAZOLAM 2 MG/2 ML VIAL ONE (12:04)
[2021-10-02] MEDS ORDERED: SODIUM CHLORIDE 0.9% 50 ML with ceFAZolin 2,000 MG IV ONE ×2 (12:30)
--- NOTE | 2021-10-02 13:33 | NM ---
EXAMINATION TYPE: NM sentinel node injection DATE OF EXAM: 10/02/2021 COMPARISON: NONE HISTORY: BREAST CA TECHNIQUE AND FINDINGS: The procedure of sentinel lymph node injection was explained to the patient. The benefits, alternatives, and risks were discussed. An informed consent was then obtained. Overlying skin is cleaned with sterile alcohol. Following this, 546 uCi Tc99m Tilmanocept was inject ed in the upper outer aspect of the left nipple intradermally. The patient tolerated the procedure well without any immediate complication. The patient was kept in the radiology department for short stay after the procedure and then taken to surgery for surgical p rocedure what is presumed intraoperative gamma probe will be used for sentinel lymph node detection. IMPRESSION: left breast radiotracer injection for sentinel node localization as above.
[2021-10-02] MEDS ORDERED: LACTATED RINGERS 1,000 ML IV ONE (15:00)
--- NOTE | 2021-10-02 15:25 | P.NAPBC ---
NAPBC Queries - NAPBC Queries Was patient's case review presented at [facility] tumor board? If no, comment.: Yes Was patient's pathology reviewed at [facility]? If no, comment.: Yes Was breast conservation surgery offered? If no, comment.: Yes (patient CHEK + and wanted bilateral mastectomies) Was sentinel node biopsy offered? If no, comment.: Yes Was diagnosis confirmed by percutaneous core biopsy? If no, comment.: Yes Is patient mastectomy patient?: Yes Was a preop referral to reconstructive surgeon offered?: Yes Clinical Stage: stage IA [id number]+Her2+G2 (status post neoadjuvant therapy)
[2021-10-02] MEDS ORDERED: ONDANSETRON 4 MG/2 ML VIAL IVP PRN (15:32)
[2021-10-02] MEDS ORDERED: NALOXONE 0.4 MG/ML 1 ML VIAL IV PRN (15:32)
[2021-10-02] MEDS ORDERED: HYDROmorphone 1 MG/ML 1 ML SYRINGE IVP PRN (15:32)
--- NOTE | 2021-10-02 15:32 | P.OP ---
Date of Procedure: 10/02/21 Preoperative Diagnosis: Left breast stage IA invasive ductal carcinoma/ CHEK + mutation Postoperative Diagnosis: Same, status post neoadjuvant chemotherapy Procedure(s) Performed: Bilateral mastectomy with left sentinel node biopsy Anesthesia: MESERET Surgeon: Octavia Sanchez Estimated Blood Loss (ml): 50 IV fluids (ml): 900 Pathology: other (Bilateral breast, left sentinel node biopsy) Condition: stable Disposition: floor Indications for Procedure: Invasive ductal carcinoma left breast Operative Findings: Fibrofatty breast tissue Description of Procedure: Following injection of radioactive tracer in the left periareolar region the patient was brought to the operative suite. Following induction of anesthesia the neoprobe was used to interrogate the left axilla. There was noted to be radioactivity present. Therefore the patient was prepped and draped in a sterile fashion. The left breast was approached initially. The area of greatest radioactivity in was identified using the neoprobe. An incision was made over this area and 2 sentinel nodes were identified. They were carefully dissected free using the Harmonic scalpel as well as the electrocautery device. The first sentinel node had a 10 second count of 8304. A second sentinel node had a 10 second count of 4330. Following this interrogation of the axilla revealed a background count of 28 with no palpable adenopathy of concern. The left mastectomy was performed. Marking pen was used to monica the superior and inferior skin flaps. These were developed using the electrocautery device. Dissection was performed down to the chest wall. The breast was taken from medial to lateral off the pectoralis muscle being careful to maintain hemostasis using the electrocautery device. After the left breast about removed a short suture was placed superiorly and a long suture laterally. The wound was well irrigated. 2 Tito-Law drains were placed. The deep tissues of both the axillary incision and the mastectomy incision were closed using 3-0 Vicryl suture. The skin was closed using 4-0 Monocryl. The drains were secured using nylon suture. [place] were applied. The right breast was then addressed. All instruments and gowns were changed prior to the right mastectomy. Skin markings were made for the right mastectomy and dissection was performed through the skin down to the subcutaneous tissue. Dissection was performed in the superior and inferior flaps were developed. The breast was then dissected free from the pectoralis muscle. The wound was well irrigated. A MARTITA drain was placed. The subcutaneous tissue was closed using 3-0 Vicryl suture. This was followed by closure of the skin using a 4-0 Monocryl. Med were applied. The drain was secured using nylon suture. The breast was marked with this short superior suture and a long lateral suture. The patient tolerated the procedure in stable condition. All instrument and sponge counts were correct at the end of the case.
[2021-10-02] MEDS ORDERED: HYDROmorphone 0.5 MG/0.5 ML SYRINGE IVP ONE ×2 (16:07→16:41)
[2021-10-02] MEDS: HEPARIN SODIUM,PORCINE/PF 5,000 UNIT/0.5 ML SYRINGE SQ SCH (17:49)
[2021-10-02] MEDS: DEXTROSE 5%-0.45% NACL 1,000 ML IV SCH (17:58)
[2021-10-02] MEDS: HYDROcodone/APAP 5-325MG 1 EACH TAB PO PRN (20:04)
[2021-10-03] MEDS: HYDROcodone/APAP 5-325MG 1 EACH TAB PO PRN ×3 (00:05→10:59)
[2021-10-03] MEDS: HEPARIN SODIUM,PORCINE/PF 5,000 UNIT/0.5 ML SYRINGE SQ SCH ×2 (01:04→07:54)
[2021-10-03] MEDS: DEXTROSE 5%-0.45% NACL 1,000 ML IV SCH (03:13)
[2021-10-03 04:41] VITALS: BP 154/85; PULSE 70; RESP 18; TEMP 97.8
[2021-10-03 07:03] LABS: Basophils # (A) 0.1 k/uL (0-0.2); Basophils % (A) 1 %; Eosinophils # (A) 0.2 k/uL (0-0.7); Eosinophils % (A) 2 %; HCT 37.9 % (34.0-46.0); HGB 12.4 gm/dL (11.4-16.0); Lymphocytes # (A) 2.6 k/uL (1.0-4.8); Lymphocytes % (A) 29 %; MCH 32.6 pg (25.0-35.0); MCHC 32.8 g/dL (31.0-37.0); MCV 99.4 fL (80.0-100.0); Mean Platelet Volume 6.8; Monocytes # (A) 0.4 k/uL (0-1.0); Monocytes % (A) 4 %; Neutrophils # (A) 5.7 k/uL (1.3-7.7); Neutrophils % (A) 63 %; Platelet Count 250 k/uL (150-450); RBC 3.81 m/uL (3.80-5.40); WBC 9.1 k/uL (3.8-10.6)
--- NOTE | 2021-10-03 10:15 | P.PN ---
Subjective Progress Note Date: 10/03/21 Principal diagnosis: Left breast invasive ductal carcinoma/ status post bilateral mastectomies with left sentinel node biopsy The patient is a 51-year-old white female status post neoadjuvant chemotherapy for left breast invasive ductal carcinoma. She was noted to have a CHEK + mutation and opted for a bilateral mastectomy, and a left sentinel node biopsy without reconstruction. She is postop day #1 and distended well with no complications. Objective - Vital Signs Vital signs: Vital Signs Temp 97.8 F 10/03/21 04:40 Pulse 70 10/03/21 04:40 Resp 18 10/03/21 04:40 BP 154/85 10/03/21 04:40 Pulse Ox 98 10/03/21 04:40 FiO2 Intake & Output 10/02/21 10/03/21 10/03/21 18:59 06:59 18:59 Intake Total 1600 Output Total 150 70 Balance 1450 -70 Weight 101 kg Intake: IV 1600 Output: Drainage 70 Left TWO BREAST MARTITA DRAINS 58 . Right Breast 12 Urine 100 Estimated Blood Loss 50 Other: # Voids 2 - Constitutional General appearance: Present: cooperative - EENT Eyes: Present: EOMI ENT: Present: hearing grossly normal - Neck Neck: Present: normal ROM - Respiratory Respiratory: bilateral: CTA - Cardiovascular Rhythm: regular Heart sounds: normal: S1, S2 - Integumentary Integumentary Comment(s): Incisions bilateral clean and dry MARTITA output was Right breast: 10 mL serosanguineous nature Left breast 2 JPs MARTITA #1 was 10 mL serous in nature MARTITA #2 48 mL serous in nature - Psychiatric Psychiatric: Present: A&O x's 3 - Labs CBC & Chem 7: 10/03/21 06:43 Assessment and Plan Assessment: Impression: Patient at this time is doing well with no complaints. Plan: Discharge patient home Teach patient drain care Follow-up with Dr. Mckeon in 1 week
--- NOTE | 2021-10-03 10:17 | P.DS ---
Providers Date of admission: 10-02-21 Expected date of discharge: 10/03/21 Attending physician: Octavia Sanchez Primary care physician: Chu Elizabeth MD Hospital Course: The patient is a 51-year-old white female status post neoadjuvant chemotherapy for invasive ductal carcinoma the left breast. She is postop day #1 from bilateral mastectomies with a left sentinel node biopsy. She has done well with no complications. Plan - Discharge Summary Discharge Rx Participant: Yes New Discharge Prescriptions: No Action Acetaminophen Tab [Tylenol Tab] 1,000 mg PO Q6HR PRN #30 tablet PRN Reason: Pain Omeprazole [PriLOSEC] 20 mg PO DAILY predniSONE See Taper PO DIRECTED Amoxicillin 875 mg PO Q12HR Discharge Medication List Acetaminophen Tab [Tylenol Tab] 1,000 mg PO Q6HR PRN #30 tablet 04/26/21 [Rx] Omeprazole [PriLOSEC] 20 mg PO DAILY 09/06/21 [History] Amoxicillin 875 mg PO Q12HR 09/27/21 [History] predniSONE See Taper PO DIRECTED 09/27/21 [History] Follow up Appointment(s)/Referral(s): Octavia Sanchez MD [STAFF PHYSICIAN] - 10/11/21 3:20 pm Activity/Diet/Wound Care/Special Instructions: Wear Yousif wrap at all times May shower after [address] until seen by Dr. Mckeon Teach drain care, drain and record MARTITA output for each drain twice a day and as needed Discharge Disposition: HOME SELF-CARE
== END 2021-10-03 11:45 | disposition home or self-care (01) ==
LOC: OR 10:52 → 4FBP 16:21 → OR 10-03 11:45
PROVIDERS: ATTEND Surgery
DX: C50.512 Malignant neoplasm of lower-outer quadrant of left female breast (principal); Z17.0 Estrogen receptor positive status [ER+]; Z92.21 Personal history of antineoplastic chemotherapy; K21.9 Gastro-esophageal reflux disease without esophagitis; Z80.3 Family history of malignant neoplasm of breast; Z87.891 Personal history of nicotine dependence; Z79.899 Other long term (current) drug therapy; Z88.1 Allergy status to other antibiotic agents; Z88.5 Allergy status to narcotic agent
CPT/HCPCS: 85025; 19303; 38500; 38792; A9520; J2250; J0330; J2405; J0690; J3010; J2704; J1170; J1644 ×2; J2001; 88307; 88309; 88341; 88342

== ENCOUNTER → 2021-10-11 | Outpatient (CLI) | payer BC ==
--- NOTE | 2021-10-11 15:24 | P.PN ---
Progress Note - Text Progress Note Date: 10/11/21 Jessica is a 51-year-old white female status post bilateral mastectomy and left sentinel node biopsy on . Postoperatively she is doing very well. She has 2 MARTITA drains on the left and one on the right and output is minimal and serous from all of them. Her pathology revealed all margins negative on the left and an 8 mm focus of invasive ductal carcinoma. The patient had 3 lymph nodes removed from the left one of which was positive for a 6 mm focus of metastatic disease. The patient had no cancer identified in the right breast. She is status post neoadjuvant chemotherapy. She is done well postoperatively. Lungs: Clear Heart: Regular rate and rhythm Incision bilateral clean and dry MARTITA drains serous in nature Plan: Removal of MARTITA drains Removal of curt Continue to use Yousif wrap Follow-up radiation oncology Follow-up medical oncology Follow-up care in 1 week to assure that no seroma has formed CC: Dr. Hall
== END ==
LOC: WWCWWP 15:11
PROVIDERS: ATTEND Surgery
DX: Z48.817 Encounter for surgical aftercare following surgery on the skin and subcutaneous tissue (principal); C50.512 Malignant neoplasm of lower-outer quadrant of left female breast; Z90.13 Acquired absence of bilateral breasts and nipples; Z88.1 Allergy status to other antibiotic agents; Z88.5 Allergy status to narcotic agent

== ENCOUNTER → 2021-10-18 | Outpatient (CLI) | payer BC ==
[2021-10-18 15:33] VITALS: BP 155/91; PULSE 94; RESP 16; TEMP 98.1
--- NOTE | 2021-10-18 15:40 | P.PN ---
Progress Note - Text Progress Note Date: 10/18/21 Jessica is a 51-year-old white female status post bilateral mastectomy and left sentinel node biopsy on . Postoperatively she is doing very well. She had 2 MARTITA drains on the left and one on the right and output last week was minimal and serous from all of them. These were all removed. Her pathology revealed all margins negative on the left and an 8 mm focus of invasive ductal carcinoma. The patient had 3 lymph nodes removed from the left one of which was positive for a 6 mm focus of metastatic disease. The patient had no cancer identified in the right breast. She is status post neoadjuvant chemotherapy. She is done well postoperatively. Lungs: Clear Heart: Regular rate and rhythm Incision bilateral clean and dry Seroma right chest wall Impression: Patient doing well Seroma right chest wall Plan: Aspiration seroma Follow-up radiation oncology Follow-up medical oncology CC: Dr. Elizabeth
== END ==
LOC: WWCWWP 15:24
PROVIDERS: ATTEND Surgery
DX: L76.34 Postprocedural seroma of skin and subcutaneous tissue following other procedure (principal); C50.512 Malignant neoplasm of lower-outer quadrant of left female breast; Z90.13 Acquired absence of bilateral breasts and nipples; Z88.1 Allergy status to other antibiotic agents; Z88.5 Allergy status to narcotic agent

== ENCOUNTER → 2022-01-29 | Outpatient (CLI) | payer BC ==
--- NOTE | 2022-01-30 07:39 | BD ---
EXAMINATION TYPE: Axial Bone Density DATE OF EXAM: 01/29/2022 COMPARISON: BASELINE CLINICAL HISTORY: 51 years old Female. ICD-10 CODE: C50.519 MALIG NEOPLASM OF LOWER-OUTER QUADRANT O F Height: 63.5 Weight: 217 FRAX RISK QUESTIONS: Family History (Parent hip fracture): NO History of Fracture in Adulthood: NO Secondary Osteoporosis: NO Rheumatoid Arthritis: NO Current Tobacco Use: NO RISK FACTORS HISTORY OF: Family History of Osteoporosis: NO Active: YES Diet low in dairy products/other sources of calcium: NO Postmenopausal woman: YES 49 Lost more than 2 inches in height since high school: NO MEDICATIONS: Additional Medications: YES ANTINEOPLASTIC REFLUX, MULTI-VIT, Additional History: YES LEFT BREAST CANCER IDC,DCIS 01/2021 CHEMO AND RADIATION EXAM MEASUREMENTS: Bone mineral densitometry was performed using the [employer] System. Bone mineral density as measured about the Lumbar spine is: ----- L1-L4(G/cm2): 1.408 T Score Values are as follows: ----- L1: 1.9 ----- L2: 1.7 ----- L3: 1.8 ----- L4: 2.0 ----- L1-L4: 1.9 Bone mineral density BASELINE Bone mineral density about the R hip (g/cm2): 1.064 Bone mineral density about the L hip (g/cm2): 1.055 T Score values are as follows: -----R Neck: -0.9 -----L Neck: -1.0 -----R Total: 0.4 -----L Total: 0.4 Bone mineral density BASELINE FRAX%s: The graph provided illustrates a 4.9% chance for a major osteoporotic fx and a 0.2% chance fo r the hips probability for fx in 10 years time. IMPRESSION: Normal (Values between +1 and -1 indicate normal bone mass). Consider repeating this study in 5 year s or sooner if there is some new clinical indication. NOTE: T-SCORE=SD OF THE YOUNG ADULT MEAN.
== END | disposition home or self-care (01) ==
LOC: RADBDWWP 16:10
PROVIDERS: ATTEND Internal Medicine Hematology & Oncology
DX: C50.519 Malignant neoplasm of lower-outer quadrant of unspecified female breast (principal)
CPT/HCPCS: 77080

== ENCOUNTER → 2022-02-08 | Outpatient (CLI) | payer BC ==
[2022-02-08 16:30] VITALS: BP 152/96; PULSE 86; RESP 17; TEMP 98.9
--- NOTE | 2022-02-08 16:36 | P.PN ---
Subjective Progress Note Date: 02/08/22 stage IA left breast invasive ductal cancer [id number]+Her2+G2 Chief Complaint: left breast invasive ductal cancer Jane is a 51-year-old white female status post routine mammogram on 9320. This revealed an area of pleomorphic calcifications in the left breast in the lower outer quadrant at 5:00 for which stereotactic core biopsy was recommended. No lesions of concern were identified in the right breast. She underwent a stereotactic core biopsy of the left breast on which revealed invasive ductal carcinoma ER+, Pr+, Her2+. The patient had not felt any lumps masses or not his of concern in either breast prior to the mammogram. She was not complaining of any abnormal nipple discharge. She gets regular mammograms every year. She has not had any recent trauma or infection in the breast. 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 She had a breast MRI which showed the lesion in the left breast to be about 3 cm, and she therefore had neoadjuvant chemotherapy. She completed 6 cycles of TCHP she had a follow-up breast MRI which revealed a complete imaging response. She completed her chemotherapy and had bilateral mastectomShe completed Xray therapy of the chest wall recommend start Aromasin. Note from Dr. Cam reviewed, 01-16-22 Caffeine: 3 cups/day nicotine: none chocolate: several times/week hormones: none BCP: 10 years, stopped 27 years ago Family history: Mother: Breast cancer mid 60s Paternal grandmother: Breast cancer Paternal aunt: Breast cancer Hormonal history: menarche: 9 , breast fed: none; first at 24 menopause: partial hysterectomy at 39 left ovaries; done for cyst no cancer BCP: 10 years stopped 27 years ago Surgical history: partial hysterectomy; left ovaries; bladder suspension foot surgery tubal Medical history: Negative Social history: Alcohol: Negative Nicotine: Negative Drugs: Negative - Constitutional Constitutional: Denies chills, Denies fever - EENT Eyes: denies blurred vision, denies pain Ears, nose, mouth and throat: Denies headache, Denies sore throat - Breasts Breasts: bilateral: as per HPI - Cardiovascular Cardiovascular: Denies chest pain, Denies shortness of breath - Respiratory Respiratory: Denies cough - Gastrointestinal Gastrointestinal: Denies abdominal pain, Denies diarrhea, Denies nausea, Denies vomiting - Genitourinary (Female) Genitourinary: Denies dysuria, Denies hematuria - Menstruation Menstruation: Reports post hysterectomy - Musculoskeletal Musculoskeletal: Reports myalgias - Integumentary Integumentary: Denies pruritus, Denies rash - Neurological Neurological: Denies numbness, Denies weakness - Psychiatric Psychiatric: Denies anxiety, Denies depression - Endocrine Endocrine: Reports weight change, Denies fatigue - Hematologic/Lymphatic Comment: none - Allergic/Immunologic Allergic/Immunologic: Reports as per HPI Past Medical History Past Medical History: No Reported History History of Any Multi-Drug Resistant Organisms: None Reported Past Surgical History: Bladder Surgery, Hysterectomy, Tubal Ligation Additional Past Surgical History / Comment(s): left breast biopsy 2020, right foot surgery x2 Past Anesthesia/Blood Transfusion Reactions: No Reported Reaction Past Psychological History: No Psychological Hx Reported Smoking Status: Former smoker Past Alcohol Use History: None Reported Past Drug Use History: None Reported Objective - Vital Signs Vital signs: Intake & Output 02/07/22 02/08/22 02/08/22 18:59 06:59 18:59 Weight 99.79 kg - Constitutional General appearance: Present: cooperative - EENT Eyes: Present: EOMI ENT: Present: hearing grossly normal - Neck Neck: Present: normal ROM - Respiratory Respiratory: bilateral: CTA - Cardiovascular Rhythm: regular Heart sounds: normal: S1, S2 - Integumentary Integumentary: Present: normal turgor - Musculoskeletal Musculoskeletal: Present: gait normal - Psychiatric Psychiatric: Present: A&O x's 3, appropriate affect, intact judgment & insight - Additional findings Additional findings: Chest wall examination Right chest wall: No evidence of any recurrent cancer Right axilla: No adenopathy of concern Left chest wall: No evidence of any disease Left axilla: No adenopathy of concern Assessment and Plan Assessment: Impression: No evidence of any recurrent cancer She is continuing on perjeta/ Herceptin Plan: follow up in 4 months continue follow with Dr. Cam CC: Dr. Elizabeth
== END | disposition home or self-care (01) ==
LOC: WWCWWP 15:45
PROVIDERS: ATTEND Surgery
DX: Z53.9 Procedure and treatment not carried out, unspecified reason (principal)

== ENCOUNTER → 2022-06-27 | Outpatient (CLI) | payer BC ==
[2022-06-27 15:47] VITALS: BP 153/81; PULSE 77; RESP 17; TEMP 98.3
--- NOTE | 2022-06-27 15:57 | P.PN ---
Subjective Progress Note Date: 06/27/22 Principal diagnosis: stage IA left breast invasive ductal cancer, [id number]+Pr+Her2+G2, 2020 Chief Complaint: left breast invasive ductal cancer Jane is a 52-year-old white female status post routine mammogram on 9320. This revealed an area of pleomorphic calcifications in the left breast in the lower outer quadrant at 5:00 for which stereotactic core biopsy was recommended. No lesions of concern were identified in the right breast. She underwent a stereotactic core biopsy of the left breast on which revealed invasive ductal carcinoma ER+, Pr+, Her2+. The patient had not felt any lumps masses or not his of concern in either breast prior to the mammogram. She was not complaining of any abnormal nipple discharge. She gets regular mammograms every year. She had not had any recent trauma or infection in the breast. 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 She had a breast MRI which showed the lesion in the left breast to be about 3 cm, and she therefore had neoadjuvant chemotherapy. She completed 6 cycles of TCHP she had a follow-up breast MRI which revealed a complete imaging response. She completed her chemotherapy and had bilateral mastectomys she completed Xray therapy of the chest wall recommend start Aromasin. She was having symptoms related to the Exmestane which included joint pain, difficulty sleeping, and vaginal discharge. She elected to stop this. She will discuss this with Dr. Cam at her next appointment which is in 2 weeks. Caffeine: 3 cups/day nicotine: none chocolate: several times/week hormones: none BCP: 10 years, stopped 27 years ago Family history: Mother: Breast cancer mid 60s Paternal grandmother: Breast cancer Paternal aunt: Breast cancer Hormonal history: menarche: 9 , breast fed: none; first at 24 menopause: partial hysterectomy at 39 left ovaries; done for cyst no cancer BCP: 10 years stopped 27 years ago Surgical history: partial hysterectomy; left ovaries; bladder suspension foot surgery tubal Medical history: Negative Social history: Alcohol: Negative Nicotine: Negative Drugs: Negative - Constitutional Constitutional: Denies chills, Denies fever - EENT Eyes: denies blurred vision, denies pain Ears, nose, mouth and throat: Denies headache, Denies sore throat - Breasts Breasts: bilateral: as per HPI - Cardiovascular Cardiovascular: Denies chest pain, Denies shortness of breath - Respiratory Respiratory: Denies cough - Gastrointestinal Gastrointestinal: Denies abdominal pain, Denies diarrhea, Denies nausea, Denies vomiting - Genitourinary (Female) Genitourinary: Denies dysuria, Denies hematuria - Menstruation Menstruation: Reports post hysterectomy - Musculoskeletal Musculoskeletal: Reports myalgias - Integumentary Integumentary: Denies pruritus, Denies rash - Neurological Neurological: Denies numbness, Denies weakness - Psychiatric Psychiatric: Denies anxiety, Denies depression - Endocrine Endocrine: Reports weight change, Denies fatigue - Hematologic/Lymphatic Comment: none - Allergic/Immunologic Allergic/Immunologic: Reports as per HPI Past Medical History Past Medical History: No Reported History History of Any Multi-Drug Resistant Organisms: None Reported Past Surgical History: Bladder Surgery, Hysterectomy, Tubal Ligation Additional Past Surgical History / Comment(s): left breast biopsy 2020, right foot surgery x2 Past Anesthesia/Blood Transfusion Reactions: No Reported Reaction Past Psychological History: No Psychological Hx Reported Smoking Status: Former smoker Past Alcohol Use History: None Reported Past Drug Use History: None Reported Objective - Vital Signs Vital signs: Vital Signs Temp 98.3 F 06/27/22 15:44 Pulse 77 06/27/22 15:44 Resp 17 06/27/22 15:44 BP 153/81 06/27/22 15:44 Pulse Ox 97 06/27/22 15:44 FiO2 Intake & Output 06/26/22 06/27/22 06/27/22 18:59 06:59 18:59 Weight 101.151 kg - Constitutional General appearance: Present: cooperative - EENT Eyes: Present: EOMI ENT: Present: hearing grossly normal - Neck Neck: Present: normal ROM - Respiratory Respiratory: bilateral: CTA - Cardiovascular Rhythm: regular Heart sounds: normal: S1, S2 - Gastrointestinal General gastrointestinal: Present: soft - Integumentary Integumentary: Present: normal turgor - Musculoskeletal Musculoskeletal: Present: gait normal - Psychiatric Psychiatric: Present: A&O x's 3, appropriate affect, intact judgment & insight - Additional findings Additional findings: Chest wall examination Right chest wall: No evidence of any recurrent cancer Right axilla: No adenopathy of concern Left chest wall: No evidence of any disease Left axilla: No adenopathy of concern Assessment and Plan Assessment: Impression: No evidence of any recurrent cancer She has completed perjeta/ Herceptin she stopped her exmestane Plan: follow up in 6 months continue follow with Dr. Cam will discuss exmestane She would like her port to be removed, this was placed by Dr. Billingsley follow up sooner any questions or concerns CC: Dr. Elizabeth
== END ==
LOC: WWCWWP 15:31
PROVIDERS: ATTEND Surgery
DX: Z85.3 Personal history of malignant neoplasm of breast (principal); C50.912 Malignant neoplasm of unspecified site of left female breast; Z80.3 Family history of malignant neoplasm of breast; Z17.0 Estrogen receptor positive status [ER+]; Z51.11 Encounter for antineoplastic chemotherapy; Z87.891 Personal history of nicotine dependence; Z88.1 Allergy status to other antibiotic agents; Z88.8 Allergy status to other drugs, medicaments and biological substances

== ENCOUNTER 2022-08-28 06:42 | Day surgery (SDC) | payer BC ==
[2022-08-26 11:39] VITALS: BMI 37.4
[~2022-08-28 06:42] MED LIST changes: +ACETAMINOPHEN TAB 500 MG TAB PO PRN; -DEXAMETHASONE SOD PHOSPHATE 4 MG/ML 1 ML VIAL IV ONE; -HYDROmorphone 0.5 MG/0.5 ML SYRINGE IVP PRN; -LACTATED RINGERS 1,000 ML IV SCH; -LIDOCAINE 1% (10MG/ML) FOR IV START INTRADERMA PRN; -METOCLOPRAMIDE 5 MG/ML 2 ML VIAL IVP PRN; -ONDANSETRON 4 MG/2 ML VIAL IVP ONE; -Pre Op ABX Message 1 EACH MISC MISCELLANE ONE; -SCOPOLAMINE 1 MG/72 HR PATCH TRANSDERM ONE
[2022-08-28] MEDS ORDERED: LIDOCAINE 1% (10MG/ML) FOR IV START INTRADERMA PRN (06:55)
[2022-08-28] MEDS ORDERED: HYDROmorphone 0.5 MG/0.5 ML SYRINGE IVP PRN (07:00)
[2022-08-28] MEDS ORDERED: ONDANSETRON 4 MG/2 ML VIAL IVP PRN (07:00)
[2022-08-28 07:22] VITALS: TEMP 98.2
[2022-08-28] MEDS: LACTATED RINGERS 1,000 ML IV SCH ×2 (07:35→07:55)
[2022-08-28] MEDS ORDERED: PROPOFOL 10 MG/ML 20 ML VIAL IV ONE (07:56)
[2022-08-28] MEDS ORDERED: MIDAZOLAM 2 MG/2 ML VIAL ONE (07:56)
[2022-08-28] MEDS ORDERED: fentaNYL (PF) 50 MCG/ML 2 ML AMP ONE (07:56)
[2022-08-28] MEDS ORDERED: LIDOCAINE 2% INJ 20 MG/ML (2 ML VIAL) ONE (07:56)
[2022-08-28] MEDS ORDERED: BUPIVACAINE (PF) 0.25% 30 ML VIAL SQ ONE ×2 (08:08)
[2022-08-28 08:27] VITALS: RESP 16
--- NOTE | 2022-08-28 08:28 | P.GSHP ---
History of Present Illness H&P Date: 08/28/22 Chief Complaint: History of breast cancer This a 52-year-old female with. He says her breast cancer. Patient presents today for removal of Port-A-Cath. Past Medical History Past Medical History: Cancer, GERD/Reflux, Vascular Disorder Additional Past Medical History / Comment(s): BREAST CANCER-LT BREAST History of Any Multi-Drug Resistant Organisms: None Reported Past Surgical History: Bladder Surgery, Breast Surgery, Hysterectomy, Orthopedic Surgery, Tubal Ligation Additional Past Surgical History / Comment(s): left breast biopsy 2020, right foot surgery x2, PORT A CATH RT SIDE OF CHEST, bilat mastectomy Past Anesthesia/Blood Transfusion Reactions: No Reported Reaction Smoking Status: Former smoker - Past Family History Mother Family Medical History: Cancer Additional Family Medical History / Comment(s): breast cancer, also in paternal grandma and aunt Medications and Allergies Home Medications Medication Instructions Recorded Confirmed Type Omeprazole [PriLOSEC] 20 mg PO DAILY 09/06/21 08/28/22 History Ibuprofen [Motrin] 600 mg PO DIRECTED PRN 02/08/22 08/28/22 History Biotin [Ddzb-Tdav-Jchrk] 10,000 mcg PO DAILY 06/27/22 08/28/22 History Dandelion Root 525 mg PO DAILY 06/27/22 08/28/22 History HYDROcodone/APAP 5-325MG [[place] 1 tab PO DIRECTED PRN 06/27/22 08/28/22 History 5-325] Magnesium 200 mg PO DAILY 06/27/22 08/28/22 History Multivitamin [Multivitamins Adult 1 tab PO DAILY 06/27/22 08/28/22 History Gummies] Losartan Potassium 50 mg PO DAILY 08/26/22 08/28/22 History Allergies Allergy/AdvReac Type Severity Reaction Status Date / Time levofloxacin [From Levaquin] Allergy Rash/Hives Verified 08/28/22 07:12 meperidine [From Demerol] AdvReac Nausea & Verified 08/28/22 07:12 Vomiting Surgical - Exam Vital Signs Temp Pulse Resp BP Pulse Ox 98.2 F 73 18 135/83 98 08/28/22 07:20 08/28/22 07:20 08/28/22 07:20 08/28/22 07:20 08/28/22 07:20 - General well developed, well nourished, no distress - Eyes PERRL - ENT normal pinna - Neck no masses - Respiratory normal expansion - Cardiovascular Rhythm: regular - Abdomen Abdomen: soft, non tender Assessment and Plan Assessment: History of breast cancer. For removal of Port-A-Cath.
--- NOTE | 2022-08-28 08:31 | P.OP ---
Date of Procedure: 08/28/22 Preoperative Diagnosis: History of breast cancer Postoperative Diagnosis: History of breast cancer Procedure(s) Performed: Removal of Port-A-Cath Anesthesia: MAC Surgeon: Hudson Talley Estimated Blood Loss (ml): 5 Pathology: none sent Condition: stable Disposition: PACU Description of Procedure: Patient's placed on the operative table in the supine position. She received IV sedation. Her chest wall was prepped and draped usual sterile fashion. The area the Port-A-Cath was incised 1% local Xylocaine. A skin incision was made at the previous port site in the right subclavian area. Using blunt sharp dissection with cautery the port was dissected free. There is no bleeding seen. The skin was then closed with interrupted 3-0 Monocryl suture. Dermabond was applied. Patient top she will was sent to recovery room in stable condition.
[2022-08-28 08:43] VITALS: BP 113/70; PULSE 56
== END 2022-08-28 09:19 | disposition home or self-care (01) ==
LOC: OR 06:42
PROVIDERS: ATTEND Surgery
DX: Z45.2 Encounter for adjustment and management of vascular access device (principal); K21.9 Gastro-esophageal reflux disease without esophagitis; Z90.710 Acquired absence of both cervix and uterus; Z85.3 Personal history of malignant neoplasm of breast; Z98.890 Other specified postprocedural states; Z98.51 Tubal ligation status; Z90.12 Acquired absence of left breast and nipple; Z87.891 Personal history of nicotine dependence; Z80.3 Family history of malignant neoplasm of breast; Z79.899 Other long term (current) drug therapy; Z88.1 Allergy status to other antibiotic agents; Z88.5 Allergy status to narcotic agent
CPT/HCPCS: 36590; J2250; J0690; J2405; J3010; J2704; J2001

== ENCOUNTER → 2022-09-20 | Outpatient (CLI) | payer BC ==
--- NOTE | 2022-09-22 14:29 | US ---
EXAMINATION TYPE: US thyroid st tissue head/neck DATE OF EXAM: 09/20/2022 COMPARISON: NONE CLINICAL INDICATION: Female, 52 years old with history of M54.2; Patient had port removed on the righ t side still feels and sees tubing. TECHNIQUE: Real-time linear array sonography FINDINGS: Scanned right neck area of concern. No tubing was visualized. Scanned left side for comparison. IMPRESSION: 1. No suspicious retained foreign bodies by ultrasound.
== END | disposition home or self-care (01) ==
LOC: RADUSWWP 14:42
PROVIDERS: ATTEND Surgery
DX: M54.2 Cervicalgia (principal)
CPT/HCPCS: 76536

== ENCOUNTER → 2022-10-18 | Outpatient (CLI) | payer BC ==
--- NOTE | 2022-10-21 09:05 | PE ---
EXAMINATION TYPE: PET CT fusion skull to thigh DATE OF EXAM: 10/18/2022 COMPARISON: None Prior PET/CT: None HISTORY: Breast cancer TECHNIQUE: Following the intravenous administration of 11 mCi of F-18 FDG, whole body images are per formed from the skull base to the midthigh. Images are reviewed on the computer in the coronal, axia l, and sagittal planes. Reconstructed rotating images are created on independent workstation and rev iewed on the computer. A localization and attenuation correction CT is performed in conjunction wit h the PET scan. DLP: 453.74 mGycm SCAN: Initial Blood glucose: 1:30 mg/dL Average Mediastinum SUV: 2.4 cm Average Liver SUV: 3.16 FINDINGS: NECK: Right supraclavicular lymph node with an SUV of 2.9 is present, image 51. THORAX: There are several right paratracheal lymph nodes with hyperintensity. This would include a abbott perior right paratracheal lymph node, 62 SUV 5.07. A pretracheal lymph node, image 68 SUV 4. A 4. Rig ht paratracheal lymph node at the same level measuring SUV 3.29. Several hyperintense lymph nodes are adjacent to the main pulmonary artery with an SUV of 5.49, 5.24, 4.19 on image 71. Subcarinal lymph node is hyperintense with an SUV of 7, image 77. Right and left hilar lymphadenopathy is present, pacheco ge 77 SUV value 4.41 on the right and 5.05 on the left. Additional right infrahilar lymphadenopathy i s present. Smaller less hyperintense uptake is present within a left supraclavicular lymph node, image 59 SUV 1. 9 ABDOMEN: No abnormal uptake PELVIS: No abnormal uptake OSSEOUS STRUCTURES: There is intense uptake at the inferior glenoid with an SUV of 3.03. This may be degenerative in nature. Metastatic lesion is not excluded. LOCALIZATION CT: Multiple small mediastinal lymph nodes are present few scattered larger lymph nodes. COMPARISON: None IMPRESSION: 1. Multiple hyperintense mediastinal and bilateral hilar lymphadenopathy suspicious for metastatic di sease. 2. There are couple of supraclavicular lymph nodes hyperintensity suggestive for metastatic disease. 3. Uptake at the right shoulder appears more suggestive for degenerative change. Metastasis is not en tirely excluded. No additional suspicious osseous uptake.
== END | disposition home or self-care (01) ==
LOC: RADPETMAIN 08:48
PROVIDERS: ATTEND Family Medicine
DX: C50.919 Malignant neoplasm of unspecified site of unspecified female breast (principal); R59.0 Localized enlarged lymph nodes
CPT/HCPCS: 78815; A9552

== ENCOUNTER → 2022-12-26 | Outpatient (CLI) | payer BC ==
[2022-12-26 09:31] VITALS: BP 136/82; PULSE 59; RESP 17; TEMP 98.2
--- NOTE | 2022-12-26 09:45 | P.PN ---
Subjective Progress Note Date: 12/26/22 stage IA left breast invasive ductal cancer, [id number]+Pr+Her2+G2, 2020; CHECK mutation Chief Complaint: left breast invasive ductal cancer Jane is a 52-year-old white female status post routine mammogram on 9320. This revealed an area of pleomorphic calcifications in the left breast in the lower outer quadrant at 5:00 for which stereotactic core biopsy was recommended. No lesions of concern were identified in the right breast. She underwent a stereotactic core biopsy of the left breast on which revealed invasive ductal carcinoma ER+, Pr+, Her2+. The patient had not felt any lumps masses or not his of concern in either breast prior to the mammogram. She was not complaining of any abnormal nipple discharge. She gets regular mammograms every year. She had not had any recent trauma or infection in the breast. 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 She had a breast MRI which showed the lesion in the left breast to be about 3 cm, and she therefore had neoadjuvant chemotherapy. She completed 6 cycles of TCHP she had a follow-up breast MRI which revealed a complete imaging response. She completed her chemotherapy and had bilateral mastectomys she completed Xray therapy of the chest wall recommend start Aromasin. She was having symptoms related to the Exmestane which included joint pain, difficulty sleeping, and vaginal discharge. She elected to stop this. Port-A-Cath removed by Dr. Baig The patient underwent a PET 10-18-22 scan which revealed mediastinal and right supraclavicular lymphadenopathy; a biopsy was done by [facility] and was (-) ?sarcoidosis Note Dr. Cam [id number] reviewed; presently taking raloxifene 60 mg daily tolerating this well better than exmestane Caffeine: 3 cups/day nicotine: none chocolate: several times/week hormones: none BCP: 10 years, stopped 27 years ago Family history: Mother: Breast cancer mid 60s Paternal grandmother: Breast cancer Paternal aunt: Breast cancer Hormonal history: menarche: 9 , breast fed: none; first at 24 menopause: partial hysterectomy at 39 left ovaries; done for cyst no cancer BCP: 10 years stopped 27 years ago Surgical history: partial hysterectomy; left ovaries; bladder suspension foot surgery tubal Medical history: Negative Social history: Alcohol: Negative Nicotine: Negative Drugs: Negative - Constitutional Constitutional: Denies chills, Denies fever - EENT Eyes: denies blurred vision, denies pain Ears, nose, mouth and throat: Denies headache, Denies sore throat - Breasts Breasts: bilateral: as per HPI - Cardiovascular Cardiovascular: Denies chest pain, Denies shortness of breath - Respiratory Respiratory: Denies cough - Gastrointestinal Gastrointestinal: Denies abdominal pain, Denies diarrhea, Denies nausea, Denies vomiting - Genitourinary (Female) Genitourinary: Denies dysuria, Denies hematuria - Menstruation Menstruation: Reports post hysterectomy - Musculoskeletal Musculoskeletal: Reports myalgias - Integumentary Integumentary: Denies pruritus, Denies rash - Neurological Neurological: Denies numbness, Denies weakness - Psychiatric Psychiatric: Denies anxiety, Denies depression - Endocrine Endocrine: Reports weight change, Denies fatigue - Hematologic/Lymphatic Comment: none - Allergic/Immunologic Allergic/Immunologic: Reports as per HPI Past Medical History Past Medical History: No Reported History History of Any Multi-Drug Resistant Organisms: None Reported Past Surgical History: Bladder Surgery, Hysterectomy, Tubal Ligation Additional Past Surgical History / Comment(s): left breast biopsy 2020, right foot surgery x2 Past Anesthesia/Blood Transfusion Reactions: No Reported Reaction Past Psychological History: No Psychological Hx Reported Smoking Status: Former smoker Past Alcohol Use History: None Reported Past Drug Use History: None Reported Objective - Vital Signs Vital signs: Vital Signs Temp 98.2 F 12/26/22 09:25 Pulse 59 L 12/26/22 09:25 Resp 17 12/26/22 09:25 BP 136/82 12/26/22 09:25 Pulse Ox 98 12/26/22 09:25 FiO2 Intake & Output 12/25/22 12/26/22 12/26/22 18:59 06:59 18:59 Weight 100.698 kg - Constitutional General appearance: Present: cooperative - EENT Eyes: Present: EOMI ENT: Present: hearing grossly normal - Neck Neck: Present: normal ROM - Respiratory Respiratory: bilateral: CTA - Cardiovascular Rhythm: regular Heart sounds: normal: S1, S2 - Integumentary Integumentary: Present: normal turgor - Musculoskeletal Musculoskeletal: Present: gait normal - Psychiatric Psychiatric: Present: A&O x's 3, appropriate affect, intact judgment & insight - Additional findings Additional findings: Chest wall examination Right chest wall: No evidence of any recurrent cancer Right axilla: No adenopathy of concern Left chest wall: No evidence of any disease Left axilla: No adenopathy of concern Assessment and Plan Assessment: Impression: No evidence of any recurrent cancer She has completed perjeta/ Herceptin she stopped her exmestane jint pain and hot flashes, on raloxifen Scan revealing adenopathy/biopsy negative as per pulmonary port a cath removed Plan: follow up in 6 months continue follow with Dr. Cam follow up sooner any questions or concerns She referred to pulmonary for biopsy of lymph node/ done and we'll continue to follow with them in 1 year CC: Dr. Elizabeth
== END ==
LOC: WWCWWP 09:01
PROVIDERS: ATTEND Surgery
DX: N95.1 Menopausal and female climacteric states (principal); Z85.3 Personal history of malignant neoplasm of breast; Z80.3 Family history of malignant neoplasm of breast; Z87.891 Personal history of nicotine dependence; Z88.1 Allergy status to other antibiotic agents; Z88.8 Allergy status to other drugs, medicaments and biological substances

== ENCOUNTER → 2023-01-01 | Outpatient (CLI) | payer BC ==
[2023-01-01 11:09] LABS: Basophils # (A) 0.03 X 10*3/uL (0.00-0.10); Basophils % (A) 0.5 %; Eosinophils # (A) 0.12 X 10*3/uL (0.04-0.35); Eosinophils % (A) 2.2 %; HGB 13.3 d/dL (12.0-17.0); Lymphocytes # (A) 1.47 X 10*3/uL (0.90-5.00); Lymphocytes % (A) 26.5 %; MCHC 32.4 d/dL (32.0-37.0); MCV 95.6 FL (80.0-97.0); Mean Platelet Volume 9.5 FL (9.5-12.2); Monocytes # (A) 0.38 X 10*3/uL (0.20-1.00); Monocytes % (A) 6.8 %; NRBC Per 100 WBC 0 X 10*3/uL (0.00-0.01); Neutrophils # (A) 3.54 X 10*3/uL (1.80-7.70); Neutrophils % (A) 63.8 %; Platelet Count 235 X 10*3/uL (140-440); RBC 4.29 X 10*6/uL (4.10-5.60); RDW 13.3 % (11.5-14.5); WBC 5.55 X 10*3/uL (4.50-10.00)
[2023-01-01 11:25] LABS: Potassium 4.7 mmol/L (3.5-5.5)
== END | disposition home or self-care (01) ==
LOC: LABWHC1 07:30
PROVIDERS: ATTEND Orthopaedic Surgery Hand Surgery
DX: Z01.812 Encounter for preprocedural laboratory examination (principal); M65.311 Trigger thumb, right thumb
CPT/HCPCS: 36415; 80051; 85025

== ENCOUNTER 2023-01-15 12:25 | Day surgery (SDC) | payer BC ==
--- NOTE | 2023-01-13 09:42 | P.HPOR ---
History of Present Illness H&P Date: 01/13/23 Subjective: This is a 52 year old female that presents today for initial evaluation regarding a several month history of progressively worsening right thumb pain with associated locking, catching and clicking. She notes the finger often gets completely locked down, requiring her to passively extend it. She denies any injury or inciting event. She denies any numbness or tingling. She's tried anti-inflammatories with little to no relief. Physical Examination: RUE: AIN/PIN/Radial/Ulnar/Median motor intact. Radial/Ulnar/Median SILT. 2+/4 Radial/Ulnar pulses palpated. 5/5 APB, 5/5 FDI. Negative Finkelsteins, negative CMC grind, negative Durkan's compression. TTP over A1 miguel of right thumb with locking, catching and clicking. Impression: 1.) Right thumb trigger thumb Plan: Diagnosis and treatment options were discussed with the patient. We discussed steroid injection vs thumb A1 miguel release and she wishes to go forward with right thumb A1 miguel release. Risks and benefits of surgery including bleeding, infection, damage to surrounding tissue, need for further surgery, residual numbness were discussed and the patient wished to go forward with surgery. The patient was agreeable with this plan. CC: Eda Elizabeth DO -Chace Allen DO Orthopedic Hand/Upper Extremity Surgeon Past Medical History Past Medical History: Cancer, GERD/Reflux, Hypertension, Osteoarthritis (OA) Additional Past Medical History / Comment(s): BREAST CANCER-LT BREAST, some heart damage from chemo, thickening of left ventricle. lymph nodes enlarged in chest - being watched will have another PET scan this January. No IVs or BP on left arm. History of Any Multi-Drug Resistant Organisms: None Reported Past Surgical History: Bladder Surgery, Breast Surgery, Hysterectomy, Orthopedic Surgery, Tubal Ligation Additional Past Surgical History / Comment(s): left breast biopsy 2020, right foot surgery x2, PORT A CATH RT SIDE OF CHEST, then removed, bilat mastectomy with lymph nodes ,partial hyst left the ovaries. colonoscopy. Past Anesthesia/Blood Transfusion Reactions: No Reported Reaction Smoking Status: Former smoker - Past Family History Mother Family Medical History: Cancer Additional Family Medical History / Comment(s): breast cancer, also in paternal grandma and aunt Medications and Allergies Home Medications Medication Instructions Recorded Confirmed Type Ibuprofen [Motrin] 600 mg PO DIRECTED PRN 02/08/22 01/10/23 History Biotin [Nltt-Ioau-Rzuyj] 10,000 mcg PO DAILY 06/27/22 01/10/23 History Dandelion Root 525 mg PO DAILY 06/27/22 01/10/23 History HYDROcodone/APAP 5-325MG [[place] 1 tab PO DIRECTED PRN 06/27/22 01/10/23 History 5-325] Magnesium 200 mg PO DAILY 06/27/22 01/10/23 History Multivitamin [Multivitamins Adult 1 tab PO DAILY 06/27/22 01/10/23 History Gummies] Losartan Potassium 50 mg PO DAILY 08/26/22 01/10/23 History Celecoxib [CeleBREX] 200 mg PO DAILY 11/08/22 01/10/23 History Raloxifene HCl 60 mg PO HS 11/08/22 01/10/23 History Unk Omeprazole 1 tab PO DIRECTED PRN 01/10/23 01/10/23 History Allergies Allergy/AdvReac Type Severity Reaction Status Date / Time levofloxacin [From Levaquin] Allergy Rash/Hives Verified 01/10/23 11:49 meperidine [From Demerol] AdvReac Nausea & Verified 01/10/23 11:49 Vomiting Physical Examination Osteopathic Statement: *. No significant issues noted on an osteopathic structural exam other than those noted in the History and Physical/Consult.
[~2023-01-15 12:25] MED LIST changes: -ACETAMINOPHEN TAB 500 MG TAB PO PRN; -HEPARIN SODIUM,PORCINE/PF 5,000 UNIT/0.5 ML SYRINGE SQ PRN; +LACTATED RINGERS 1,000 ML IV SCH; +Pre Op ABX Message 1 EACH MISC MISCELLANE ONE
[2023-01-15 13:09] VITALS: TEMP 97.9
[2023-01-15 13:12] LABS: Glucose,Whole Blood 98 mg/dL (70-110)
[2023-01-15] MEDS ORDERED: ONDANSETRON 4 MG/2 ML VIAL ONE (13:20)
[2023-01-15] MEDS ORDERED: ONDANSETRON 4 MG/2 ML VIAL IVP ONE (13:24)
[2023-01-15] MEDS ORDERED: DEXAMETHASONE SOD PHOSPHATE 4 MG/ML 1 ML VIAL IVP ONE (13:24)
[2023-01-15] MEDS ORDERED: PROPOFOL 10 MG/ML 20 ML VIAL IV ONE (13:52)
[2023-01-15] MEDS ORDERED: fentaNYL (PF) 50 MCG/ML 2 ML AMP ONE (13:52)
[2023-01-15] MEDS ORDERED: MIDAZOLAM 2 MG/2 ML VIAL ONE (13:52)
[2023-01-15] MEDS ORDERED: BUPIVACAINE (PF) 0.5% 30 ML VIAL SQ ONE (14:08)
[2023-01-15] MEDS ORDERED: LIDOCAINE 1% INJ 10MG/ML (20 ML MDV) SQ ONE (14:08)
--- NOTE | 2023-01-15 14:14 | P.OP ---
Date of Procedure: 01/15/23 Preoperative Diagnosis: Right thumb stenosing tenosynovitis Postoperative Diagnosis: Right thumb stenosing tenosynovitis Procedure(s) Performed: Right thumb A1 miguel release Anesthesia: MAC Surgeon: Chace Allen Industry Operations Investigator #1: Iban Coffman Estimated Blood Loss (ml): 0 Pathology: none sent Condition: stable Description of Procedure: This is a 52 year old female who presents today for a right thumb trigger finger A1 miguel release after having failed conservative treatment. Risks and benefits of surgery were discussed with the patient including bleeding, damage to surrounding tissue, infection, need for further surgery as well as risks of anesthesia including pulmonary embolism and even and the patient wished to proceed with surgical intervention. The patient was seen in the pre-operative area by myself. Consent and H&P were completed and updated. The correct extrem ity was marked in the pre-operative area by myself and all other questions were answered. Operative Narrative: The patient was brought to the operating room by the department of anesthesia. They remained on the portable stretcher and a rolling hand table was brought to the side of the operative extremity. Pre-operative time out was performed indicating the correct patient, procedure and laterality. All in the room agreed. Pre-operative antibiotics were given prior to skin incision. The patient was then drifted off to sleep by the department of anesthesia. MAC anesthesia was utilized and a 50:50 mixture of 1% Lidocaine and 0.5% bupivacaine was injected into the subcutaneous tissues of the palmar skin, 3 ccs total. A nonsterile tourniquet was then applied to the operative extremity and the operative upper extremity was then prepped and draped in normal sterile fashion. The operative extremity was the exsanguinated with an esmarch bandage and the tourniquet was inflated to 250mmHg. Transverse incision was made at the base of the thumb overlying the A1 miguel. Blunt dissection was taken down to the level of the A1 miguel. Ragnell retractors were placed both radially and ulnarly to protect neurovascular bundles. Littler tenotomy scissors were then used to release the A1 miguel from proximal to distal under direct visualization. Proximal fascial attachments were released. The tendon was then taken through range of motion and no locking or catching was appreciated. The wound was then closed with interrupted 4-0 nylon sutures in a horizontal mattress fashion. Sterile dressing consisting of adaptic, 4x4s, webril, and an jerry wrap was applied. Tourniquet was let down and the hand was immediately well perfused. The patient was then woken by the department of anesthesia and transferred to PACU in stable condition. Iban PERKINS was present for the case to assist in manipulation of the hand and protection of vital neurovascular structures. Chace Allen D.O. Orthopedic Hand/Upper Extremity Surgeon
[2023-01-15 14:32] VITALS: PULSE 63; RESP 16
[2023-01-15 14:53] VITALS: BP 136/81
== END 2023-01-15 14:50 | disposition home or self-care (01) ==
LOC: OR 12:25
PROVIDERS: ATTEND Orthopaedic Surgery Hand Surgery
DX: M65.311 Trigger thumb, right thumb (principal); I10 Essential (primary) hypertension; K21.9 Gastro-esophageal reflux disease without esophagitis; M19.90 Unspecified osteoarthritis, unspecified site; Z79.1 Long term (current) use of non-steroidal anti-inflammatories (NSAID); Z85.3 Personal history of malignant neoplasm of breast; Z87.891 Personal history of nicotine dependence; Z88.1 Allergy status to other antibiotic agents; Z88.5 Allergy status to narcotic agent; Z79.899 Other long term (current) drug therapy
CPT/HCPCS: 26055; J2250; J1100; J2405; J2001; J3010; J2704; J0665

== ENCOUNTER → 2023-02-14 | Outpatient (CLI) | payer BC ==
--- NOTE | 2023-02-16 09:56 | PE ---
EXAMINATION TYPE: PET CT fusion skull to thigh DATE OF EXAM: 02/14/2023 CLINICAL INDICATION:Female, 52 years old with history of C50.519 BREAST CANCER; TECHNIQUE: Following the intravenous administration of 12.6 mCi of F-18 FDG, whole body images are performed from the skull base to the midthigh. Images are reviewed on the computer in the coronal, a xial, and sagittal planes. Reconstructed rotating images are created on independent workstation and reviewed on the computer. A non-contrast CT is performed in conjunction with the PET scan. Glucose level 119 mg/dL CT DLP: 917 mGycm, Automated exposure control for dose reduction was used. COMPARISON: CT None, PET/CT 10/18/2022, FINDINGS: Mediastinal SUV mean is 2.7. Hepatic parenchyma SUV mean is 3.5 . SKULL BASE AND NECK: No suspicious radiotracer activity. CHEST, MEDIASTINUM, AND HILAR REGION: Positive response to therapy with decrease in size and number of mediastinal lymph nodes. Abnormal lymphadenopathy throughout the mediastinum, examples include * Right pulmonary hilum max SUV 13.8, previously 7.8, measurements difficult with IV contrast. * Subcarinal lymph node max SUV 14.9, previously 8.4 measuring 14 mm previously 11 mm. * Right low paratracheal max SUV 12.7, previously 7.5 measuring 9 mm previously 9 mm. * AP window max SUV 7.9, previously 5.6 posteriorly measuring 10 mm, previously 12 mm. * AP window Anteriorly max SUV 7.2, previously 7.1 measuring 8 mm previously 9 mm . * Left pulmonary hilum max SUV 13.7, previously 6.5. measurements difficult with IV contrast. Right shoulder a focus of uptake in the lymph node max SUV 6.3 measuring 6 mm. Not seen on prior. ABDOMEN AND PELVIS: * Hepatic dome low-density areas largest measuring 4.4 x 3.2 cm Max SUV 4.1. * Another area in the liver of low attenuation more inferiorly measuring up to 2.7 cm Max SUV 4.2 * Upper abdomen expression lymph nodes max SUV 5.7 measuring 5 mm MUSCULOSKELETAL STRUCTURES: No suspicious radiotracer activity. OTHER CT: Atherosclerosis of the arterial vasculature. The heart is mildly enlarged for size. Scatter ed colonic diverticula. The uterus appears surgically absent. The breasts appear surgically absent. S cattered colonic diverticula. IMPRESSION: 1. Increased metabolic activity with persistent abnormal FDG activity throughout the mediastinal lym ph nodes, right shoulder lymph node and upper abdominal retroperitoneal lymph node. 2. Areas within the liver of lower attenuation do not demonstrate increased FDG activity and are ind eterminate findings could represent treated malignancy.
== END | disposition home or self-care (01) ==
LOC: RADPETMAIN 08:42
PROVIDERS: ATTEND Internal Medicine Hematology & Oncology
DX: C50.519 Malignant neoplasm of lower-outer quadrant of unspecified female breast (principal)
CPT/HCPCS: 78815; A9552

== ENCOUNTER → 2023-03-19 | Outpatient (CLI) | payer BC ==
--- NOTE | 2023-03-22 15:38 | MR ---
EXAMINATION TYPE: MR liver wo/w con DATE OF EXAM: 03/19/2023 7:58 AM CLINICAL INDICATION:Female, 53 years old with history of C50.519; PHH, Abnormal PET CT, hx breast can cer. COMPARISON: Pet/CT 02/14/2023 TECHNIQUE: Multiplanar multi-sequence imaging was performed without contrast. Post contrast imaging was performed. Post IV contrast subtraction images were also submitted for review. IV Contrast: 10 cc Gadavist FINDINGS: LOWER CHEST: No gross irregularity. ABDOMEN Liver: No evidence of cirrhosis. This chemical shift signal dropout on out of phase imaging. There is high T2 signal lesions present throughout the liver. There are at least 7 lesions identified . The largest in the dome measures up to 4.6 cm and in the right hepatic lobe segment 5 measuring up to 4.1 cm. The largest lesions demonstrate peripheral nodular discontinuous progressive enhancement. The smaller lesions also demonstrate peripheral nodular discontinuous progressive enhancement. No rebecca picious liver lesions. Gallbladder and Bile ducts: No evidence for ductal dilation, or biliary stricture or evidence of chol edocholithiasis. The gallbladder is within normal limits. Pancreas: No ductal dilation. No evidence for solid mass. Spleen: Normal for size. Adrenal glands: Unremarkable. Kidneys: No evidence for obstructive uropathy. Right high T2 simple appearing renal cysts. No suspici ous renal masses. Stomach and Bowel: No evidence for bowel wall thickening or evidence for obstruction.. Peritoneum: No evidence of pneumoperitoneum or free fluid. Vasculature: No aortic aneurysm. Musculoskeletal: The osseous structures appear intact. Lymph Nodes: No gross evidence for lymphadenopathy. Abdominal wall: (Stasis of the rectus abdominis. IMPRESSION: 1. Lesions in the liver most compatible with hepatic hemangiomas. This correlates with lack of FDG a ctivity on pet/CT. No suspicious liver lesions at this time. 2. Hepatic steatosis.
== END | disposition home or self-care (01) ==
LOC: RADMRIMAIN 07:14
PROVIDERS: ATTEND Internal Medicine Hematology & Oncology
DX: K76.0 Fatty (change of) liver, not elsewhere classified (principal); C50.519 Malignant neoplasm of lower-outer quadrant of unspecified female breast
CPT/HCPCS: 74183; A9585

== ENCOUNTER → 2023-04-24 | Outpatient (CLI) | payer BC ==
--- NOTE | 2023-04-24 19:32 | CT ---
EXAMINATION TYPE: CT chest w con CT DLP: 398.3 mGycm, Automated exposure control for dose reduction was used. DATE OF EXAM: 04/24/2023 5:19 PM COMPARISON: Pet/CT 02/14/2023, MRI liver 03/19/2023 CLINICAL INDICATION:Female, 53 years old with history of R59.0 LOCALIZED ENLARGED LYMPH NODES; PHH, E nlarged lymph nodes x 1 year TECHNIQUE: Multiple axial images were obtained through the chest. Sagittal and coronal reformats were created for review. Contrast used:100 cc mL of Isovue 300 with IV Contrast (None if empty) Oral contrast used: (None if empty) FINDINGS: LUNGS/ PLEURA: No focal consolidation, pneumothorax or pleural effusion. No new or enlarging pulmonar y nodules. AIRWAY: Patent and unremarkable. HEART: Size within normal limits. MEDIASTINUM: Mediastinal lymph nodes are decreased in size compared to PET/CT 02/14/2023 there remain s right low paratracheal lymph node measuring up to 10 mm, previously 12 mm. AP window and prevascula r space lymph nodes are also less prominent compared to prior. VASCULATURE: No aortic aneurysm. MUSCULOSKELETAL: No acute osseous abnormalities SOFT TISSUES/LYMPH NODES: The breasts appear surgically absent. No axillary lymphadenopathy identifie d. LOWER NECK: No significant findings. UPPER ABDOMEN: Redemonstration of hepatic lesions felt to represent hepatic hemangiomas on prior MRI liver, the largest measuring up to 48 x 49 mm near the dome in the right hepatic lobe and more infer iorly in the right hepatic lobe measuring up to 41 mm. Both of these similar to prior. Scattered colo radames diverticula. IMPRESSION: 1. Positive response to therapy with decreasing mediastinal lymph node sizes. The breasts are surgic ally absent without evidence for axillary lymphadenopathy or mass within the surgical bed. No new or enlarging pulmonary nodules. 2. Stable size of hepatic hemangiomas compared to MRI liver mass protocol 03/19/2023.
== END | disposition home or self-care (01) ==
LOC: RADCTMAIN 16:48
PROVIDERS: ATTEND Internal Medicine Critical Care Medicine
DX: R59.0 Localized enlarged lymph nodes (principal)
CPT/HCPCS: 71260; Q9967

== ENCOUNTER → 2023-07-11 | Outpatient (CLI) | payer BC ==
--- NOTE | 2023-07-11 10:39 | P.PN ---
Subjective Progress Note Date: 07/11/23 Principal diagnosis: stage IA left breast IDC 2020; [id number]+Pr+Her2+G2, CHEK mutation 07-11-23 stage IA left breast invasive ductal cancer, [id number]+Pr+Her2+G2, 2020; CHECK mutation Chief Complaint: left breast invasive ductal cancer 07-11-23 Jane is a 53-year-old white female status post routine mammogram on 9320. This revealed an area of pleomorphic calcifications in the left breast in the lower outer quadrant at 5:00 for which stereotactic core biopsy was recommended. No lesions of concern were identified in the right breast. She underwent a stereotactic core biopsy of the left breast on which revealed invasive ductal carcinoma ER+, Pr+, Her2+. The patient had not felt any lumps masses or not his of concern in either breast prior to the mammogram. She was not complaining of any abnormal nipple discharge. She gets regular mammograms every year. She had not had any recent trauma or infection in the breast. 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 She had a breast MRI which showed the lesion in the left breast to be about 3 cm, and she therefore had neoadjuvant chemotherapy. She completed 6 cycles of TCHP she had a follow-up breast MRI which revealed a complete imaging response. She completed her chemotherapy and had bilateral mastectomys she completed Xray therapy of the chest wall recommend start Aromasin. She was having symptoms related to the Exmestane which included joint pain, difficulty sleeping, and vaginal discharge. She elected to stop this. Port-A-Cath removed by Dr. Baig The patient underwent a PET 10-18-22 scan which revealed mediastinal and right supraclavicular lymphadenopathy; a biopsy was done by [facility] and was (-) ?sarcoidosis Note Dr. Cam [id number] reviewed; presently taking raloxifene 60 mg daily tolerating this well better than exmestane note Dr. Cam reviewed 06-10-23; PET scan in July 2023, mediastinal lymphadenopathy; presently on reloxifene She is still having pain in her hands and feet; She is not complaining of any changes on her chest wall or any recurrence of disease. Caffeine: 3 cups/day nicotine: none chocolate: several times/week hormones: none BCP: 10 years, stopped 27 years ago Family history: Mother: Breast cancer mid 60s Paternal grandmother: Breast cancer Paternal aunt: Breast cancer Hormonal history: menarche: 9 , breast fed: none; first at 24 menopause: partial hysterectomy at 39 left ovaries; done for cyst no cancer BCP: 10 years stopped 27 years ago Surgical history: partial hysterectomy; left ovaries; bladder suspension foot surgery tubal thumb left bilateral mastectomies with left SNB port placed and removed Medical history: Negative Social history: Alcohol: Negative Nicotine: Negative Drugs: Negative - Constitutional Constitutional: Denies chills, Denies fever - EENT Eyes: denies blurred vision, denies pain Ears, nose, mouth and throat: Denies headache, Denies sore throat - Breasts Breasts: bilateral: as per HPI - Cardiovascular Cardiovascular: Denies chest pain, Denies shortness of breath - Respiratory Respiratory: Denies cough - Gastrointestinal Gastrointestinal: Denies abdominal pain, Denies diarrhea, Denies nausea, Denies vomiting - Genitourinary (Female) Genitourinary: Denies dysuria, Denies hematuria - Menstruation Menstruation: Reports post hysterectomy - Musculoskeletal Musculoskeletal: Reports myalgias - Integumentary Integumentary: Denies pruritus, Denies rash - Neurological Neurological: Denies numbness, Denies weakness - Psychiatric Psychiatric: Denies anxiety, Denies depression - Endocrine Endocrine: Reports weight change, Denies fatigue - Hematologic/Lymphatic Comment: none - Allergic/Immunologic Allergic/Immunologic: Reports as per HPI Past Medical History Past Medical History: No Reported History History of Any Multi-Drug Resistant Organisms: None Reported Past Surgical History: Bladder Surgery, Hysterectomy, Tubal Ligation Additional Past Surgical History / Comment(s): left breast biopsy 2020, right foot surgery x2 Past Anesthesia/Blood Transfusion Reactions: No Reported Reaction Past Psychological History: No Psychological Hx Reported Smoking Status: Former smoker Past Alcohol Use History: None Reported Past Drug Use History: None Reported Objective - Vital Signs Vital signs: Vital Signs Temp 97.8 F 07/11/23 10:11 Pulse 72 07/11/23 10:11 Resp 17 07/11/23 10:11 BP 160/77 07/11/23 10:11 Pulse Ox 97 07/11/23 10:11 FiO2 Intake & Output 07/10/23 07/11/23 07/11/23 18:59 06:59 18:59 Weight 100.698 kg - Constitutional General appearance: Present: cooperative - EENT Eyes: Present: EOMI ENT: Present: hearing grossly normal - Neck Neck: Present: normal ROM - Respiratory Respiratory: bilateral: CTA - Cardiovascular Rhythm: regular Heart sounds: normal: S1, S2 - Integumentary Integumentary: Present: normal turgor - Musculoskeletal Musculoskeletal: Present: gait normal - Psychiatric Psychiatric: Present: A&O x's 3, appropriate affect, intact judgment & insight - Additional findings Additional findings: Chest wall examination Right chest wall: No evidence of any recurrent cancer Right axilla: No adenopathy of concern Left chest wall: No evidence of any disease Left axilla: No adenopathy of concern Assessment and Plan Assessment: Impression: No evidence of any recurrent cancer She has completed perjeta/ Herceptin she stopped her exmestane jint pain and hot flashes, on raloxifen Scan revealing adenopathy/biopsy negative as per pulmonary; repeat PET in July 2023 port a cath removed Plan: follow up in 6 months continue follow with Dr. Cam PET scan in July to follow with Dr. Cam follow up sooner any questions or concerns CC: Dr. Elizabeth
[2023-07-11 10:43] VITALS: BP 160/77; PULSE 72; RESP 17; TEMP 97.8
== END ==
LOC: WWCWWP 09:47
PROVIDERS: ATTEND Surgery
DX: R92.1 Mammographic calcification found on diagnostic imaging of breast (principal); C50.912 Malignant neoplasm of unspecified site of left female breast; R59.0 Localized enlarged lymph nodes; M79.642 Pain in left hand; M79.641 Pain in right hand; R23.2 Flushing; Z80.3 Family history of malignant neoplasm of breast; Z87.891 Personal history of nicotine dependence; Z90.13 Acquired absence of bilateral breasts and nipples; Z17.0 Estrogen receptor positive status [ER+]; Z88.1 Allergy status to other antibiotic agents; Z88.8 Allergy status to other drugs, medicaments and biological substances

== ENCOUNTER → 2023-08-23 | Outpatient (CLI) | payer BC ==
--- NOTE | 2023-08-24 13:52 | PE ---
EXAMINATION TYPE: PET CT fusion skull to thigh DATE OF EXAM: 08/23/2023 CLINICAL INDICATION:Female, 53 years old with history of [id number]; TECHNIQUE: Following the intravenous administration of 13.49 mCi of F-18 FDG, whole body images are performed from the skull base to the midthigh. Images are reviewed on the computer in the coronal, axial, and sagittal planes. Reconstructed rotating images are created on independent workstation and reviewed on the computer. A non-contrast CT is performed in conjunction with the PET scan. Glucose level 105 mg/dL CT DLP: 790 mGycm, Automated exposure control for dose reduction was used. COMPARISON: CT 04/24/2023, PET/CT 02/14/2023, FINDINGS: Mediastinal SUV mean 2.2. Hepatic parenchyma SUV mean is 3.2. SKULL BASE AND NECK: * No suspicious radiotracer activity. * Uptake along the left nose soft tissues max SUV 6.3. CHEST, MEDIASTINUM, AND HILAR REGION: Abnormal lymphadenopathy throughout the mediastinum, examples include * Right pulmonary hilum max SUV 11.8, previously 13.8, 7.8, measurements difficult with IV contrast. * Subcarinal lymph node max SUV 8.4, previously 14.9, 8.4 measuring 12 mm, previously 14 mm * Right low paratracheal max SUV 9.4, previously 12.7, 7.5 measuring 9 mm previously 9 mm. * AP window max SUV 6.4, previously 7.9, 5.6 posteriorly measuring 10 mm, previously 12 mm. * AP window Anteriorly max SUV 6.1, previously 7.2, 7.1 measuring 8 mm previously 9 mm . * Left pulmonary hilum max SUV 12.6, previously 13.7, 6.5. measurements difficult with IV contrast. Right shoulder a focus of uptake in the lymph node max SUV 3.4r, previously 6.3 measuring 6 mm. Not s een on prior. ABDOMEN AND PELVIS: No suspicious radiotracer activity. * Hepatic dome low-density areas largest measuring 4.4 x 4.0 cm Max SUV 3.9, previously 4.1. * Another area in the liver of low attenuation more inferiorly measuring up to cm Max SUV 3.9, previ ously 4.2 * Stable Upper abdomen retroperitoneal lymph nodes max SUV 5.7, previously 5.7 measuring 5 mm MUSCULOSKELETAL STRUCTURES: No suspicious radiotracer activity. OTHER CT: Atherosclerosis of the arterial vasculature. The heart is mildly enlarged for size. Scatter ed colonic diverticula. The uterus appears surgically absent. The breasts appear surgically absent. S cattered colonic diverticula. IMPRESSION: 1. Mildly decreased activity of the mediastinal/thoracic lymph nodes, right shoulder lymph node and upper abdominal retroperitoneal lymph node. Sizes remains similar to prior. 2. Stable liver lesions grossly characterized on MRI.
== END | disposition home or self-care (01) ==
LOC: RADPETMAIN 13:13
PROVIDERS: ATTEND Internal Medicine Hematology & Oncology
DX: C50.519 Malignant neoplasm of lower-outer quadrant of unspecified female breast (principal); K76.9 Liver disease, unspecified
CPT/HCPCS: 78815; A9552

== ENCOUNTER → 2023-08-26 | Outpatient (CLI) | payer BC ==
--- NOTE | 2023-08-26 17:54 | CT ---
EXAMINATION TYPE: CT abdomen pelvis wo con CT DLP: 947.50 mGycm, Automated exposure control for dose reduction was used. DATE OF EXAM: 08/26/2023 4:09 PM COMPARISON: Correlation is made with the current CT of 08/23/2023 CLINICAL INDICATION:Female, 53 years old with history of R10.32 left lower quadrant pain K57.92 diver ticulitis OF INTESTINE PART UNSPECIFIED. W; Left sided abdominal pain TECHNIQUE: Axial CT abdomen pelvis wo con;Sagittal and coronal reformats were created on a separate workstation. Contrast used: mL of , (none if empty) Oral contrast used: with Oral Contrast (none if empty) FINDINGS: LOWER CHEST: Unremarkable ABDOMEN LIVER: Faintly discernible solid appearing hypodensities in the liver most compatible with liver dolly ngioma. GALLBLADDER AND BILE DUCTS: Unremarkable. PANCREAS: Unremarkable. SPLEEN: Unremarkable. ADRENAL GLANDS: Unremarkable. KIDNEYS AND URETERS: No evidence of hydronephrosis or renal calculus. The ureters are unremarkable. PELVIS BLADDER: Unremarkable REPRODUCTIVE: Unremarkable. ABDOMEN & PELVIS STOMACH AND BOWEL: Stomach and duodenum are unremarkable. No evidence of bowel obstruction. PERITONEUM/RETROPERITONEUM: No evidence of pneumoperitoneum or free fluid. VASCULATURE: No evidence of aortic aneurysm. MUSCULOSKELETAL: No acute osseous abnormalities LYMPH NODES: No gross evidence for lymphadenopathy. SOFT TISSUE/ABDOMINAL WALL: Unremarkable IMPRESSION: 1. No acute process is detected. No colonic diverticulitis is appreciated. 2. Subtle vague hypodensities in liver are most compatible with liver hemangioma as seen on the CT ch est w con exam from 04/24/2023.
== END | disposition home or self-care (01) ==
LOC: RADCTMAIN 14:22
PROVIDERS: ATTEND Family Medicine
DX: K57.92 Diverticulitis of intestine, part unspecified, without perforation or abscess without bleeding (principal); R10.32 Left lower quadrant pain
CPT/HCPCS: 74176

== ENCOUNTER → 2024-01-19 | Outpatient (CLI) | payer BC ==
[2024-01-19 08:52] VITALS: RESP 16
--- NOTE | 2024-01-19 09:45 | P.PN ---
Subjective Progress Note Date: 01/19/24 stage IA left breast IDC 2020; [id number]+Pr+Her2+G2, CHEK mutation 07-11-23 stage IA left breast invasive ductal cancer, [id number]+Pr+Her2+G2, 2020; CHECK mutation Chief Complaint: left breast invasive ductal cancer 07-11-23 Jane is a 53-year-old white female status post routine mammogram on 9320. This revealed an area of pleomorphic calcifications in the left breast in the lower outer quadrant at 5:00 for which stereotactic core biopsy was recommended. No lesions of concern were identified in the right breast. She underwent a stereotactic core biopsy of the left breast on which revealed invasive ductal carcinoma ER+, Pr+, Her2+. The patient had not felt any lumps masses or nodules of concern in either breast prior to the mammogram. She was not complaining of any abnormal nipple discharge. She gets regular mammograms every year. She had not had any recent trauma or infection in the breast. 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 She had a breast MRI which showed the lesion in the left breast to be about 3 cm, and she therefore had neoadjuvant chemotherapy. She completed 6 cycles of TCHP she had a follow-up breast MRI which revealed a complete imaging response. She completed her chemotherapy and had bilateral mastectomys she completed Xray therapy of the chest wall recommend start Aromasin. She was having symptoms related to the Exmestane which included joint pain, difficulty sleeping, and vaginal discharge. She elected to stop this. Port-A-Cath removed by Dr. Baig The patient underwent a PET 10-18-22 scan which revealed mediastinal and right supraclavicular lymphadenopathy; a biopsy was done by Florecita and was (-) ?sarcoidosis Note Dr. Cam [id number] reviewed; presently taking raloxifene 60 mg daily tolerating this well better than exmestane note Dr. Cam reviewed 06-10-23; PET scan in July 2023, mediastinal lymphadenopathy; presently on reloxifene She is still having pain in her hands and feet; She is not complaining of any changes on her chest wall or any recurrence of disease. 01-19-24 53 year old female with a history of a left breast IDC [id number]+ID+HEr2+G2 Check 2 mutation She completed her chemotherapy and had bilateral mastectomys 10-02-21 8mm left breast, + SNB (1-3) 6 mm DCIS, she completed Xray therapy of the chest wall recommend start Aromasin. She was having symptoms related to the Exmestane which included joint pain, difficulty sleeping, and vaginal discharge. She elected to stop this. She is doing well at this time, note DR. Cam 09-09-23 recomended to continue EVISTA Some tightness in the right side of her neck and is having an MRI of this area later this week. note 09-09-23 DR Cam reviewed Caffeine: 3 cups/day nicotine: none chocolate: several times/week hormones: none BCP: 10 years, stopped 27 years ago Family history: Mother: Breast cancer mid 60s Paternal grandmother: Breast cancer Paternal aunt: Breast cancer Hormonal history: menarche: 9 , breast fed: none; first at 24 menopause: partial hysterectomy at 39 left ovaries; done for cyst no cancer BCP: 10 years stopped 27 years ago Surgical history: partial hysterectomy; left ovaries; bladder suspension foot surgery tubal thumb left bilateral mastectomies with left SNB port placed and removed Medical history: Negative Social history: Alcohol: Negative Nicotine: Negative Drugs: Negative - Constitutional Constitutional: Denies chills, Denies fever - EENT Eyes: denies blurred vision, denies pain Ears, nose, mouth and throat: Denies headache, Denies sore throat - Breasts Breasts: bilateral: as per HPI - Cardiovascular Cardiovascular: Denies chest pain, Denies shortness of breath - Respiratory Respiratory: Denies cough - Gastrointestinal Gastrointestinal: Denies abdominal pain, Denies diarrhea, Denies nausea, Denies vomiting - Genitourinary (Female) Genitourinary: Denies dysuria, Denies hematuria - Menstruation Menstruation: Reports post hysterectomy - Musculoskeletal Musculoskeletal: Reports myalgias - Integumentary Integumentary: Denies pruritus, Denies rash - Neurological Neurological: Denies numbness, Denies weakness - Psychiatric Psychiatric: Denies anxiety, Denies depression - Endocrine Endocrine: Reports weight change, Denies fatigue - Hematologic/Lymphatic Comment: none - Allergic/Immunologic Allergic/Immunologic: Reports as per HPI Past Medical History Past Medical History: No Reported History History of Any Multi-Drug Resistant Organisms: None Reported Past Surgical History: Bladder Surgery, Hysterectomy, Tubal Ligation Additional Past Surgical History / Comment(s): left breast biopsy 2020, right foot surgery x2 Past Anesthesia/Blood Transfusion Reactions: No Reported Reaction Past Psychological History: No Psychological Hx Reported Smoking Status: Former smoker Past Alcohol Use History: None Reported Past Drug Use History: None Reported - Objective - Vital Signs Vital signs: Vital Signs Temp Pulse Resp 16 01/19/24 08:50 BP Pulse Ox FiO2 Intake & Output 01/18/24 01/19/24 01/19/24 18:59 06:59 18:59 Weight 99.79 kg - Constitutional General appearance: Present: cooperative - EENT Eyes: Present: EOMI ENT: Present: hearing grossly normal - Neck Neck: Present: normal ROM - Respiratory Respiratory: bilateral: CTA - Cardiovascular Rhythm: regular Heart sounds: normal: S1, S2 - Integumentary Integumentary: Present: normal turgor - Musculoskeletal Musculoskeletal: Present: gait normal - Psychiatric Psychiatric: Present: A&O x's 3, appropriate affect, intact judgment & insight - Additional findings Additional findings: Chest wall examination Right chest wall: No evidence of any recurrent cancer Right axilla: No adenopathy of concern Left chest wall: No evidence of any disease Left axilla: No adenopathy of concern Assessment and Plan Assessment: Impression: No evidence of any recurrent cancer She has completed perjeta/ Herceptin she stopped her exmestane jint pain and hot flashes, on raloxifen Scan revealing adenopathy/biopsy negative as per pulmonary; repeat PET in July 2023 port a cath removed Plan: follow up in 6 months continue follow with Dr. Cam PET scan in February to follow with Dr. Cam follow up sooner any questions or concerns CC: Dr. Elizabeth
== END ==
LOC: WWCWWP 08:05
PROVIDERS: ATTEND Surgery

== ENCOUNTER → 2024-01-21 | Outpatient (CLI) | payer BC ==
--- NOTE | 2024-01-21 09:19 | MR ---
INDICATION: Patient age:Female; 53 years old; Reason for study: R20.0; PHH. COMPARISON: None. TECHNIQUE: Multi planar, multi sequence imaging was performed. No Gadolinium was given. FINDINGS: Alignment: The cervical vertebral bodies have preserved heights. Alignment is within normal limits gi minnie patient positioning. Bones: Bone signal is within normal limits. Cord: The spinal cord is unremarkable with regards to their signal intensity and morphology. Discs: Mild multilevel disc desiccation. C2-C3: Minimal broad-based disc bulge. No significant effacement of the anterior thecal sac. No neur al foraminal stenosis. C3-C4: Mild broad-based disc bulge without significant effacement of the anterior thecal sac. Left n eural foramen is patent. Uncovertebral joint hypertrophy resulting in mild right neural foraminal ester rowing. C4-C5: Mild broad-based disc bulge with mild significant effacement of the anterior thecal sac. Left neural foramen is patent. Uncovertebral joint hypertrophy resulting in mild to moderate right neural foraminal narrowing. C5-C6: Broad-based disc bulge with mild effacement of the anterior thecal sac. There is mild indentat ion of the anterior central spinal cord. No abnormal cord signal. Left neural foramen is patent. Unc overtebral joint hypertrophy resulting in moderate right neural foraminal narrowing. C6-C7: No significant disc pathology. The spinal canal is patent. No neural foraminal stenosis. C7-T1: No significant disc pathology. The spinal canal is patent. No neural foraminal stenosis. Other: None. IMPRESSION: Multilevel disc degeneration and uncovertebral joint arthropathy as described above. Most prominent f rom C4 through C6 with mild central canal stenosis. No disc herniation identified. [facility], , 01/21/2024 9:17 AM
== END | disposition home or self-care (01) ==
LOC: RADMRIMAIN 05:58
PROVIDERS: ATTEND Family Medicine
CPT/HCPCS: 72141

== ENCOUNTER → 2024-02-26 | Outpatient (CLI) | payer BC ==
--- NOTE | 2024-02-29 11:27 | PE ---
EXAMINATION TYPE: PET CT fusion skull to thigh DATE OF EXAM: 02/26/2024 CLINICAL INDICATION:Female, 54 years old with history of left breast cancer, C50.511 BREAST CANCER; TECHNIQUE: Following the intravenous administration of 80.93 mCi of F-18 FDG, whole body images are performed from the skull base to the midthigh. Images are reviewed on the computer in the coronal, axial, and sagittal planes. Reconstructed rotating images are created on independent workstation and reviewed on the computer. A non-contrast CT is performed in conjunction with the PET scan. Glucose level 109 mg/dL CT DLP: 904.8 mGycm, Automated exposure control for dose reduction was used. COMPARISON: CT 08/26/2023, PET/CT 08/23/2023, MRI: 01/21/2024 FINDINGS: Mediastinal SUV mean 2.2. Hepatic parenchyma SUV mean is 3.2. SKULL BASE AND NECK: * Uptake along the left nose soft tissues max SUV 6.3. * Left supraclavicular max SUV 5.7 previously 2.9. * Right supraclavicular lymph node max SUV 5.3, previously 3.8 CHEST, MEDIASTINUM, AND HILAR REGION: Abnormal lymphadenopathy throughout the mediastinum, examples include * Right pulmonary hilum max SUV 15.6, previously 11.8, 13.8, 7.8, measurements difficult with IV con trast. * Subcarinal lymph node max SUV 15.3, previously 8.4, 14.9, 8.4 measuring 10 mm. * Right low paratracheal max SUV 15.3, previously 9.4, 12.7, 7.5 measuring 9 mm. * AP window max SUV 11.5, previously 6.4, 7.9, 5.6 posteriorly measuring 8 mm. * Grouped lymph nodes in the AP window Anteriorly max SUV 10.0, previously 6.1, 7.2, 7.1 measuring 8 mm. * Left pulmonary hilum max SUV 14.1, previous 12.6, 13.7, 6.5. measurements difficult with IV contra st. ABDOMEN AND PELVIS: No suspicious radiotracer activity. * Multiple low-density lesions are seen throughout the liver the largest measuring near the dome marilyn suring up to 4.4 cm 4Max SUV 5.1, previously 3.9, 4.1. Other lesions do not demonstrate focal abnorma l increased uptake. * Stable Upper abdomen retroperitoneal lymph nodes max SUV 8.3, previously 5.7, 5.7 measuring 5 mm MUSCULOSKELETAL STRUCTURES: No suspicious radiotracer activity. OTHER CT: Atherosclerosis of the arterial vasculature. The heart is mildly enlarged for size. Scatter ed colonic diverticula. The uterus appears surgically absent. The breasts appear surgically absent. S cattered colonic diverticula. IMPRESSION: Progression of disease with increasing metabolic activity of the low neck lymph nodes, mediastinal ly mph nodes and retroperitoneal lymph nodes. There remains no significant uptake within the liver tommie layton. [facility], , 02/29/2024 11:24 AM
== END | disposition home or self-care (01) ==
LOC: RADPETMAIN 08:43
PROVIDERS: ATTEND Internal Medicine Hematology & Oncology
DX: C50.511 Malignant neoplasm of lower-outer quadrant of right female breast (principal); K57.30 Diverticulosis of large intestine without perforation or abscess without bleeding; I51.7 Cardiomegaly
CPT/HCPCS: 78815; A9552

== ENCOUNTER 2024-03-11 11:57 | Day surgery (SDC) | payer BC ==
[2024-03-09 16:09] VITALS: BMI 38.2
[2024-03-11] MEDS ORDERED: LIDOCAINE 1% (10MG/ML) FOR IV START INTRADERMA PRN (12:14)
[2024-03-11] MEDS: IV FLUID CONTINUATION 1,000 ML IV ONE ×2 (12:22→13:07)
[2024-03-11 12:24] VITALS: TEMP 97
[2024-03-11] MEDS: LACTATED RINGERS 1,000 ML IV SCH (12:31)
[2024-03-11] MEDS ORDERED: LIDOCAINE 1% INJ 10MG/ML (20 ML MDV) ONE (13:09)
[2024-03-11] MEDS ORDERED: PROPOFOL 10 MG/ML 20 ML VIAL IV ONE (13:09)
[2024-03-11 13:32] VITALS: RESP 16
[2024-03-11 13:49] VITALS: BP 143/95; PULSE 74
--- NOTE | 2024-03-11 16:30 | P.OP ---
Date of Procedure: 03/11/24 Preoperative Diagnosis: Screening Colonoscopy Postoperative Diagnosis: Normal Colon Procedure(s) Performed: Colonoscopy Anesthesia: other (Sedation) Surgeon: Mario Garrett Pathology: none sent Condition: stable Disposition: PACU Description of Procedure: After informed consent was obtained, the patient was placed in the left lateral position and the above medications were titrated with adequate sedation. Monitoring was provided throughout the entire procedure. Digital rectal exam was performed revealing normal sphincter tone and no external hemorrhoids. The colonoscope was inserted into rectum and advanced under direct visualization, without difficulty, to the cecum, where the cecal strap, appendiceal orifice, and the ileocecal valve were identified. The quality of the preparation was good. The colonoscope was then withdrawn while carefully examining the mucosa. The colonic mucosa appeared normal with normal vascularity and haustral markings. No masses, polyps, AVM/s or diverticula were seen. On retroflexed view in the rectum, there are small internal hemorrhoids. The endoscope was removed and the procedure terminated. The patient tolerated the procedure well without complications. The patient will need a repeat colonoscopy in 10 years.
== END 2024-03-11 14:04 | disposition home or self-care (01) ==
LOC: ORWHC2ENDO 11:57
PROVIDERS: ATTEND Surgery
DX: Z12.11 Encounter for screening for malignant neoplasm of colon (principal); K64.8 Other hemorrhoids; I10 Essential (primary) hypertension; K21.9 Gastro-esophageal reflux disease without esophagitis; Z87.891 Personal history of nicotine dependence; Z88.8 Allergy status to other drugs, medicaments and biological substances; Z79.899 Other long term (current) drug therapy; Z90.710 Acquired absence of both cervix and uterus
CPT/HCPCS: 45378; J2003; J2704

== ENCOUNTER → 2024-06-22 | Outpatient (CLI) | payer BC ==
--- NOTE | 2024-06-22 17:41 | CT ---
EXAMINATION TYPE: CT abdomen pelvis w con DATE OF EXAM: 06/22/2024 5:19 PM COMPARISON: MRI 03/19/2023, at 02/26/2024 CLINICAL INDICATION: Female, 54 years old with history of C78.7 SECONDARY MALIG NEOPLASM OF LIVER; hx breast and liver Ca. TECHNIQUE: Axial CT abdomen pelvis w con;Sagittal and coronal reformats were created on a separate w orkstation. Contrast used:100ml mL of Isovue 300 with IV Contrast, (none if empty) Oral contrast used: with Oral Contrast (none if empty) CT DLP: 1594.9 mGycm, Automated exposure control for dose reduction was used. FINDINGS: LOWER CHEST: Unremarkable ABDOMEN LIVER: Scattered hepatic lesions with what is thought to be peripheral enhancement measuring up to 43 mm. GALLBLADDER AND BILE DUCTS: Unremarkable. PANCREAS: Unremarkable. SPLEEN: Unremarkable. ADRENAL GLANDS: Unremarkable. KIDNEYS AND URETERS: No evidence of hydronephrosis or renal calculus. The ureters are unremarkable. r right renal cortical cysts measuring up to 16 mm. No follow-up recommended. PELVIS BLADDER: No evidence for wall thickening or mass given limitations of exam. REPRODUCTIVE: Unremarkable. ABDOMEN & PELVIS STOMACH AND BOWEL: No evidence of bowel obstruction. Scattered colonic diverticula.r PERITONEUM/RETROPERITONEUM: No evidence of pneumoperitoneum or free fluid. VASCULATURE: No evidence of aortic aneurysm. MUSCULOSKELETAL: No acute osseous abnormalities LYMPH NODES: Lymph nodes in the upper abdomen which are FDG avid on 02/26/2024 are not significantly c hanged measuring up to 8 mm just anterior left of the IVC. SOFT TISSUE/ABDOMINAL WALL: Unremarkable IMPRESSION: 1. Lymph nodes in the upper abdomen which are FDG avid on 02/26/2024 are not significantly changed me asuring up to 8 mm just anterior left of the IVC. No enlarging lymph nodes identified. 2. Stable hepatic hemangiomas in the liver. [facility], , 06/22/2024 5:38 PM
== END | disposition home or self-care (01) ==
LOC: RADCTMAIN 15:02
PROVIDERS: ATTEND Family Medicine
DX: C78.7 Secondary malignant neoplasm of liver and intrahepatic bile duct (principal); D18.03 Hemangioma of intra-abdominal structures; K57.30 Diverticulosis of large intestine without perforation or abscess without bleeding
CPT/HCPCS: 74177; Q9967

== ENCOUNTER → 2024-07-16 | Outpatient (CLI) | payer BC ==
[2024-07-16 09:25] VITALS: BP 129/81; PULSE 89; RESP 16; TEMP 98
--- NOTE | 2024-07-16 15:52 | P.PN ---
Subjective Progress Note Date: 07/16/24 01/19/24 stage IA left breast IDC 2020; [id number]+Pr+Her2+G2, CHEK mutation 07-11-23 stage IA left breast invasive ductal cancer, [id number]+Pr+Her2+G2, 2020; CHECK mutation Chief Complaint: left breast invasive ductal cancer 07-11-23 Jane is a 53-year-old white female status post routine mammogram on 9320. This revealed an area of pleomorphic calcifications in the left breast in the lower outer quadrant at 5:00 for which stereotactic core biopsy was recommended. No lesions of concern were identified in the right breast. She underwent a stereotactic core biopsy of the left breast on which revealed invasive ductal carcinoma ER+, Pr+, Her2+. The patient had not felt any lumps masses or nodules of concern in either breast prior to the mammogram. She was not complaining of any abnormal nipple discharge. She gets regular mammograms every year. She had not had any recent trauma or infection in the breast. 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 She had a breast MRI which showed the lesion in the left breast to be about 3 cm, and she therefore had neoadjuvant chemotherapy. She completed 6 cycles of TCHP she had a follow-up breast MRI which revealed a complete imaging response. She completed her chemotherapy and had bilateral mastectomys she completed Xray therapy of the chest wall recommend start Aromasin. She was having symptoms related to the Exmestane which included joint pain, difficulty sleeping, and vaginal discharge. She elected to stop this. Port-A-Cath removed by Dr. Baig The patient underwent a PET 10-18-22 scan which revealed mediastinal and right supraclavicular lymphadenopathy; a biopsy was done by Florecita and was (-) ?sarcoidosis Note Dr. Cam [id number] reviewed; presently taking raloxifene 60 mg daily tolerating this well better than exmestane note Dr. Cam reviewed 06-10-23; PET scan in July 2023, mediastinal lymphadenopathy; presently on reloxifene She is still having pain in her hands and feet; She is not complaining of any changes on her chest wall or any recurrence of d isease. 01-19-24 53 year old female with a history of a left breast IDC [id number]+AR+HEr2+G2 Check 2 mutation She completed her chemotherapy and had bilateral mastectomys 10-02-21 8mm left breast, + SNB (1-3) 6 mm DCIS, she completed Xray therapy of the chest wall recommend start Aromasin. She was having symptoms related to the Exmestane which included joint pain, difficulty sleeping, and vaginal discharge. She elected to stop this. She is doing well at this time, note DR. Cam 09-09-23 recommended to continue EVISTA Some tightness in the right side of her neck and is having an MRI of this area later this week. 07-16-24 53 year old female with a history of a left breast IDC [id number]+AR+HEr2+G2 Check 2 mutation She completed her chemotherapy and had bilateral mastectomys 10-02-21 8mm left breast, + SNB (1-3) 6 mm DCIS, she completed Xray therapy of the chest wall recommend start Aromasin. She was having symptoms related to the Exmestane which included joint pain, difficulty sleeping, and vaginal discharge. She elected to stop this. She is doing well at this time, note DR. Cam 03-09-24 recommended to continue EVISTA PET 02-26-24 progression of disease with increasing metabolic activity of low neck lymph nodes she was evidently seen again by Dr. Frey who did not feel that any further biopsies were merited Since that time she has had a CT scan of the chest on 04 28 24 which showed no enlarging lymph nodes identified stable appearance of lungs and mediastinal lymph nodes and a repeat CT abdomen and pelvis on 06 22 24 which showed lymph nodes in the upper abdomen were not significantly changed from study of 02-26-2024 Caffeine: 3 cups/day nicotine: none chocolate: several times/week hormones: none BCP: 10 years, stopped 27 years ago Family history: Mother: Breast cancer mid 60s Paternal grandmother: Breast cancer Paternal aunt: Breast cancer Hormonal history: menarche: 9 , breast fed: none; first at 24 menopause: partial hysterectomy at 39 left ovaries; done for cyst no cancer BCP: 10 years stopped 27 years ago Surgical history: partial hysterectomy; left ovaries; bladder suspension foot surgery tubal thumb left bilateral mastectomies with left SNB port placed and removed Medical history: Negative Social history: Alcohol: Negative Nicotine: Negative Drugs: Negative - Constitutional Constitutional: Denies chills, Denies fever - EENT Eyes: denies blurred vision, denies pain Ears, nose, mouth and throat: Denies headache, Denies sore throat - Breasts Breasts: bilateral: as per HPI - Cardiovascular Cardiovascular: Denies chest pain, Denies shortness of breath - Respiratory Respiratory: Denies cough - Gastrointestinal Gastrointestinal: Denies abdominal pain, Denies diarrhea, Denies nausea, Denies vomiting - Genitourinary (Female) Genitourinary: Denies dysuria, Denies hematuria - Menstruation Menstruation: Reports post hysterectomy - Musculoskeletal Musculoskeletal: Reports myalgias - Integumentary Integumentary: Denies pruritus, Denies rash - Neurological Neurological: Denies numbness, Denies weakness - Psychiatric Psychiatric: Denies anxiety, Denies depression - Endocrine Endocrine: Reports weight change, Denies fatigue - Hematologic/Lymphatic Comment: none - Allergic/Immunologic Allergic/Immunologic: Reports as per HPI Past Medical History Past Medical History: No Reported History History of Any Multi-Drug Resistant Organisms: None Reported Past Surgical History: Bladder Surgery, Hysterectomy, Tubal Ligation Additional Past Surgical History / Comment(s): left breast biopsy 2020, right foot surgery x2 Past Anesthesia/Blood Transfusion Reactions: No Reported Reaction Past Psychological History: No Psychological Hx Reported Smoking Status: Former smoker Past Alcohol Use History: None Reported Past Drug Use History: None Reported Objective - Vital Signs Vital signs: Vital Signs Temp 98 F 07/16/24 09:22 Pulse 89 07/16/24 09:22 Resp 16 07/16/24 09:22 BP 129/81 07/16/24 09:22 Pulse Ox 97 07/16/24 09:22 FiO2 Intake & Output 07/15/24 07/16/24 07/16/24 18:59 06:59 18:59 Weight 104.326 kg - Constitutional General appearance: Present: cooperative - EENT Eyes: Present: EOMI ENT: Present: hearing grossly normal - Neck Neck: Present: normal ROM - Respiratory Respiratory: bilateral: CTA - Cardiovascular Rhythm: regular Heart sounds: normal: S1, S2 - Integumentary Integumentary: Present: normal turgor - Musculoskeletal Musculoskeletal: Present: gait normal - Psychiatric Psychiatric: Present: A&O x's 3, appropriate affect, intact judgment & insight - Additional findings Additional findings: Chest wall examination Right chest wall: No evidence of any recurrent cancer Right axilla: No adenopathy of concern Left chest wall: No evidence of any disease Left axilla: No adenopathy of concern Assessment and Plan Assessment: Impression: No evidence of any recurrent cancer She has completed perjeta/ Herceptin she stopped her exmestane joint pain and hot flashes, on raloxifen Scan revealing adenopathy/biopsy negative as per pulmonary; repeat PET 02-26-24 progression of disease with increasing metabolic activity of low neck lymph nodes she was evidently seen again by Dr. Frey who did not feel that any further biopsies were merited Since that time she has had a CT scan of the chest on 04 28 24 which showed no enlarging lymph nodes identified stable appearance of lungs and mediastinal lymph nodes and a repeat CT abdomen and pelvis on 06 22 24 which showed lymph nodes in the upper abdomen were not significantly changed from study of 02-26-2024 port a cath removed Plan: follow up in 6 months most recent note from Dr. Cam to be obtained continue follow with Dr. Cam follow up sooner any questions or concerns CC: Dr. Elizabeth
== END ==
LOC: WWCWWP 08:57
PROVIDERS: ATTEND Surgery
DX: C50.912 Malignant neoplasm of unspecified site of left female breast (principal); Z88.1 Allergy status to other antibiotic agents; Z88.5 Allergy status to narcotic agent

== ENCOUNTER → 2024-07-29 | Outpatient (CLI) | payer BC ==
--- NOTE | 2024-07-30 11:16 | BD ---
EXAMINATION TYPE: Axial Bone Density DATE OF EXAM: 07/29/2024 CLINICAL HISTORY: 54 years old Female. ICD-10 CODE: M81.0 AGE-RELATED OSTEOPOROSIS W/O CURRENT PATHO LO , Additional History: Height: 63" Weight: 233lbs FRAX RISK QUESTIONS: Alcohol (3 or more units per day): No Family History (Parent hip fracture): No Glucocorticoids (More than 3mos): No (Ex: prednisone, prednisolone, methylprednisolone, dexamethasone, and hydrocortisone). History of Fracture in Adulthood: No Secondary Osteoporosis: 1. Type 1 Diabetes: No 2. Hyperthyroidism: No 3. Menopause before 45: Yes 4. Malnutrition: No 5. Chronic liver disease: No Rheumatoid Arthritis: No Current Tobacco Use: No RISK FACTORS HISTORY OF: Hip Fracture (Right/Left): No Spine Fracture: No History of Wrist Fracture: No Surgery to Spine/Hip(right/left)/Wrist (right/left): No MEDICATIONS: Thyroid Medications: No Osteoporosis Medications: No EXAM MEASUREMENTS: Bone mineral densitometry was performed using the [employer] System. Bone mineral density as measured about the Lumbar spine is: ----- L1-L4(G/cm2): 1.312 T Score Values are as follows: ----- L1: -0.3 ----- L2: 0.6 ----- L3: 2.3 ----- L4: 1.7 ----- L1-L4: 1.1 Z Score Values are as follows: ----- L1: -0.5 ----- L2: 0.3 ----- L3: 2.0 ----- L4: 1.5 ----- L1-L4: 0.8 Bone mineral density has: decreased -6.8% since study of: 01/29/2022 Bone mineral density about the R hip (g/cm2): 1.039 Bone mineral density about the L hip (g/cm2): 1.078 T Score values are as follows: -----R Neck: -1.4 -----L Neck: -1.1 -----R Total: 0.2 -----L Total: 0.6 Z Score values are as follows: -----R Neck: -1.0 -----L Neck: -0.8 -----R Total: 0.1 -----L Total: 0.4 Bone mineral density has: decreased -0.1% since study of: 01/29/2022 FRAX%s: The graph provided illustrates a 5.9% chance for a major osteoporotic fx and a 0.4% chance fo r the hips probability for fx in 10 years time. IMPRESSION: Osteopenia (T Score between -2.5 and -1). There is slightly increased risk of fracture and the patient may be considered for treatment. Re-Screen 2-5 years. NOTE: T-SCORE=SD OF THE YOUNG ADULT MEAN. [facility], , 07/30/2024 11:13 AM
== END | disposition home or self-care (01) ==
LOC: RADBDWWP 16:12
PROVIDERS: ATTEND Internal Medicine Hematology & Oncology
DX: M81.0 Age-related osteoporosis without current pathological fracture (principal); C50.519 Malignant neoplasm of lower-outer quadrant of unspecified female breast; G60.8 Other hereditary and idiopathic neuropathies; M85.89 Other specified disorders of bone density and structure, multiple sites; Z71.3 Dietary counseling and surveillance; Z78.0 Asymptomatic menopausal state
CPT/HCPCS: 77080